=== PATIENT | male | born 1950 | race Caucasian/White ===

== ENCOUNTER 2024-03-18 04:37 | Inpatient (IN) | payer MEDICARE, MEDICAID, SELFPAY ==
[2024-03-18] VITALS (78 sets, daily range): BP systolic 79–125; BP diastolic 47–93; PULSE 51–112; RESP 10–26; TEMP 37.2–38.8; O2SAT 95–100; BMI 22.6
--- NOTE | 2024-03-18 04:46 | XR_ITS ---
Examination: AP chest single view Technique one AP portable semiupright chest single view Exam date and time: March 18, 2024 at 0521 hrs. Comparison September 20, 2023 Indications: Shortness of breath today. Findings: Large retrocardiac gastric hernia Bilateral perihilar left upper lobe pneumonia Mild prominence left ventricle Moderate vascular congestion Prominent osteopenia Impression: Bilateral perihilar left upper lobe pneumonia
--- NOTE | 2024-03-18 04:46 | EKG_ITS ---
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: : 1950 Requested By: Ronnie Beck Order Number: [id number] Reading MD: Ronnie Beck Measurements Intervals [place] Rate: 112 P: 16 MA: 181 QRS: 200 QRSD: 128 T: 40 QT: 325 QTc: 445 Interpretive Statements SINUS TACHYCARDIA MARKED RIGHT AXIS DEVIATION [QRS AXIS > 100] RIGHT BUNDLE BRANCH BLOCK [120+ ms QRS DURATION, UPRIGHT V1, 40+ ms S IN I/aVL/V4/V5/V6] ST DEVIATION AND MODERATE T-WAVE ABNORMALITY, CONSIDER ANTEROLATERAL ISCHEMIA [-0.1+ mV T WAVE IN V3-V6] Compared to ECG 09/20/2023 13:25:05 Right-axis deviation now present Right bundle-branch block now present T-wave abnormality now present Possible ischemia now present Sinus rhythm no longer present Myocardial infarct finding no longer present /store/S0/[id number]/[id number].pdf
--- NOTE | 2024-03-18 04:49 | PD.EDMALE ---
ED Male Genitalurinary RME/HPI General Chief complaint: Urogenital-Male Stated complaint: SOB/HEMATURIA Time Seen by Provider: 03/18/24 05:09 Source: patient and other (SNF records reviewed) Arrival date/time: 03/18/24 04:37 Mode of arrival: EMS Limitations: no limitations RME / HPI RME / HPI Narrative: Dr. Medeiros?s Main ED Evaluation: 73-year-old male from [facility] with h/o malnutrition, paraplegia, rAKA, depression, anxiety, pressure ulcer LT lower back stage III, pressure ulcer LT buttock stage III, UTI, charcot's joint unspecified to ankle/foot, peripheral vascular disease, hx of COVID-19, osteoarthritis, pressure ulcer of sacral region, stage III, brought in by ambulance who presents to the emergency department for shortness of breath. Per assisted, they reported patient's oxygen saturations were in the 70s on 4L therefore EMS was activated. Patient was also hypotensive. Patient states he is not normally on oxygen or short of breath, but tonight he had difficulty breathing. He also reports cough. Per EMS, on scene, patient was satting 93% on 5L. intermediate staff also reported hematuria after gordon cath placement yesterday. 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 Patient reports is on hospice for pain management secondary to severe neck and back pain. Per facility POLST, patient is full code. Related Data Home Medications ?Medication ?Instructions ?Recorded ?Confirmed alprazolam 1 mg tablet (Xanax) 1 mg PO Q6H 06/27/23 03/19/24 amino acids-protein hydrolysate 15 1 ea PO BID 06/27/23 03/19/24 gram-100 kcal/30 mL oral liquid (Pro-Stat Sugar Free) ascorbic acid (vitamin C) 500 mg 500 mg PO BID 06/27/23 03/19/24 tablet (Vitamin C) fluoxetine 10 mg tablet 10 mg PO QDAY 06/27/23 03/19/24 folic acid 1 mg tablet 1 mg PO BID 06/27/23 03/19/24 pantoprazole 40 mg tablet,delayed 40 mg PO BID 06/27/23 03/19/24 release (Protonix) polyethylene glycol 3350 17 gram 17 g PO HS 06/27/23 03/19/24 oral powder packet (Miralax) senna-docusate sodium capsule 1 cap PO BID PRN Constipation 06/27/23 03/19/24 baclofen 10 mg tablet 10 mg PO Q6H PRN Muscle Spasm 09/21/23 03/19/24 hydromorphone 4 mg tablet 8 mg PO Q4H PRN Pain, Severe 09/21/23 03/19/24 ibuprofen 200 mg tablet 600 mg PO Q6H PRN Pain, Moderate 09/21/23 03/19/24 ondansetron HCl 4 mg tablet 4 mg PO Q6H PRN nausea AND 09/21/23 03/19/24 VOMITTING oxymetazoline 0.05 % nasal mist 2 spray intranasal Q12H PRN NASAL 09/21/23 03/19/24 CONGESTION Previous Rx's ?Medication ?Instructions ?Recorded fluconazole 200 mg tablet 400 mg (2 x 200 mg) PO QDAY 1 09/23/23 month #60 tabs sulfamethoxazole 400 1 tab PO QDAY #7 tabs 09/23/23 mg-trimethoprim 80 mg tablet (Bactrim) Allergies Allergy/AdvReac Type Severity Reaction Status Date / Time No Known Allergies Allergy Verified 06/26/23 16:49 Review of Systems Review of Systems Systems Reviewed: All systems reviewed, normal except as documented Past Medical History Past Medical History NEUROLOGIC: Positive Neurological Disorders CARDIAC: Positive Cardiac Disorders, Atrial Fibrillation, Peripheral Vascular Disease and Hypotension; Negative Congestive Heart Failure RESPIRATORY: Positive Pneumonia; Negative Chronic Obstructive Pulmonary Disease (COPD) or Asthma GENITOURINARY: Positive Neurogenic Bladder; Negative Renal Disease MUSCULOSKELETAL: Positive Musculoskeletal Disorders and Arthritis ENDOCRINE: Negative Diabetes Mellitus Type 1 or Diabetes Mellitus Type 2 HEMATOLOGIC: Positive Blood Disorders and Anemia; Negative Sickle Cell Disease PSYCHO/SOCIAL: Positive Depression and Anxiety OTHER HISTORY: Positive Hospitalization, Blood Transfusions and MRSA; Negative Blood Transfusion Reaction, Anesthesia Reactions or Cancer Surgical History SURGICAL: Positive Amputation (RIGHT AKA) Social History SMOKING STATUS: Unknown if ever smoked ED Exam Narrative Physical exam: GENERAL APPEARANCE: alert and oriented x 4, well-developed, well-nourished, no acute distress VITALS: All vitals were reviewed and the pulse ox is 97% on 4 L/min, which is normal according to my interpretation. HEENT: Normocephalic, atraumatic; pupils equal, round, reactive to light; EOMI; mucous membranes pink, moist; oropharynx clear NECK: Supple LUNGS: CTABL; no wheezes, no rales, no rhonchi HEART: Regular rate, regular rhythm; normal S1, S2; no murmurs ABDOMEN: non distended; normal BS; soft, no tenderness, no guarding, no rebound; no masses, no organomegaly, no hernia BACK: no CVA tenderness EXTREMITIES: atraumatic; no edema; rAKA NEUROLOGIC: awake; alert and oriented x4; cranial nerves II-XII grossly intact; no focal sensory or motor deficits PSYCHIATRIC: appropriate mood and affect SKIN: warm, dry, normal color; no rashes General Limitations: Present no limitations Course Quality Measures none Orders Category Date Time Status Bedside COVID-19 Antigen Test NOW Care 03/18/24 05:34 Active Bedside Influenza A&B Antigen Test NOW Care 03/18/24 05:[address] Screening NOW Care 03/18/24 06:27 Active Physical Therapy Aide STAT Care 03/18/24 05:00 Active Continuous Bladder Irrigation QSHIFT Care 03/18/24 05:19 Active Continuous Pulse Oximetry STAT Care 03/18/24 05:00 Completed EKG (ED ONLY) *Do not use* NOW Care 03/18/24 04:46 Completed EKG (ED ONLY) *Do not use* NOW Care 03/18/24 05:15 Completed EKG (ED ONLY) *Do not use* NOW Care 03/18/24 06:27 Completed Insert IV NOW Care 03/18/24 05:00 Active NPO STAT Care 03/18/24 05:00 Active Strict Intake and Output Routine Care 03/18/24 05:00 Ordered Consult to Urology Stat Cons 03/18/24 09:[address] chest abdomen pelvis w Stat Exams 03/18/24 06:26 Completed EKG (ED Only) Stat Exams 03/18/24 04:46 Draft EKG (ED Only) Stat Exams 03/18/24 05:15 Draft EKG (ED Only) Stat Exams 03/18/24 06:26 Ordered XR chest 1V portable Stat Exams 03/18/24 04:46 Completed Antibody Identification Stat Lab 03/18/24 04:05 Results B-Type Natriuretic Peptide Stat Lab 03/18/24 05:15 Completed BMP [Basic Metabolic Panel] Stat Lab 03/18/24 09:43 Completed Blood Culture (Lab) Stat Lab 03/18/24 05:10 Received CBC Stat Lab 03/18/24 05:15 Completed CBC Stat Lab 03/18/24 09:43 Completed Comprehensive Metabolic Panel Stat Lab 03/18/24 04:05 Completed LDH (Lactate Dehydrogenase) Stat Lab 03/18/24 04:05 Completed Lactate (Lactic Acid) Stat Lab 03/18/24 05:15 Completed Lactic Acid, 3 HR Stat Lab 03/18/24 09:43 Completed Lipase Stat Lab 03/18/24 04:05 Completed Magnesium Stat Lab 03/18/24 04:05 Completed Partial Thromboplastin Time Stat Lab 03/18/24 04:05 Completed Phosphorous Stat Lab 03/18/24 04:05 Completed Procalcitonin Stat Lab 03/18/24 04:05 Completed Prothrombin Time with INR Stat Lab 03/18/24 04:05 Completed Troponin I Stat Lab 03/18/24 04:05 Completed Type and Screen Stat Lab 03/18/24 04:05 Results UA, C/S IF [Urinalysis, C/S if Indicated] Stat Lab 03/18/24 07:55 Completed Urine Culture Stat Lab 03/18/24 06:40 Received Urine Culture Stat Lab 03/18/24 07:55 Received VBG [Venous Blood Gas] Stat Lab 03/18/24 05:15 Completed prbc [Red Blood Cells] Stat Lab 03/18/24 04:05 Results Acetaminophen Ivpb [Ofirmev Inj] Med 03/18/24 05:17 Discontinued 1,000 mg in 100 ml IV NOW Lidocaine Jelly 2% Urojet [Xylocaine Jelly 2% Urojet] Med 03/18/24 05:15 Discontinued See Dose Instructions TOP X1 ONE Norepinephrine/D5W 8mg/250ml [Levophed in D5W 8mg/250ml Med 03/18/24 10:12 Discontinued ] 8 mg in 250 ml IV 0.05 mcg/kg/min Norepinephrine/NS 16mg/250ml [Levophed in NS 16mg/250ml Med 03/18/24 09:35 Discontinued ] 16 mg in 250 ml IV 0.05 mcg/kg/min Piper/Tazo Inj [Zosyn Inj] 4.5 gm Med 03/18/24 05:09 Discontinued Sodium Chloride 0.9% (P) [NS 0.9% mini bag] 100 ml IV NOW Sodium Chloride 0.9% 1000 ml [Ns] 1,000 ml Med 03/18/24 05:15 Discontinued IV 999 mls/hr Sodium Chloride 0.9% 1000 ml [Ns] 1,000 ml Med 03/18/24 09:18 Discontinued IV 999 mls/hr Sodium Chloride 0.9% 1000 ml [Ns] 1,000 ml Med 03/18/24 09:50 Discontinued IV 999 mls/hr Vancomycin Inj 1,000 mg Med 03/18/24 05:10 Discontinued Sodium Chloride 0.9% 250 ml [Ns] 250 ml IV X1 Oxygen Delivery NOW RT 03/18/24 05:00 Active Vital Signs Vital signs: Vital Signs Temperature 101.9 F H 03/18/24 04:58 Pulse Rate 112 H 03/18/24 04:58 Respiratory Rate 25 H 03/18/24 04:58 Blood Pressure 103/71 03/18/24 04:58 Pulse Oximetry (%) 98 03/18/24 04:58 Oxygen Delivery Method Nasal Cannula 03/18/24 04:58 Oxygen Flow Rate 6 03/18/24 04:58 Procedures -ED Procedure Comment EKG at 04:56 shows sinus tachycardia at 112, right axis deviation, no ectopy, rBBB. QRS is 128, QTc 445. Generalized ST abnormalities but no STEMI. Urogenital - Male MDM Narrative MDM Narrative:: 05:00 Sepsis alert initiated. Orders made at this time are congruent with ED Adult Sepsis Order List. Re-evaluation is to be completed. 05:35 Sepsis reassessment performed consisting of lab review, vitals, physical exam including auscultation of heart, lungs, and visual evaluation of capillary refills, mucosal membranes and extremities. 06:00 Care signed out to [facility]. Past medical, surgical, social and family history reviewed. Vitals and home medications reviewed. Results and treatment plan discussed. They will assume the care of the patient at this time and will follow the patient, pending work-up and final disposition. Scribe Attestation: Kiersten Olson, am scribing for and in the presence of Dr. Medeiros. Provider Notation: Although this document has been carefully reviewed, there may still be some phonetic and other typographical errors. These errors are purely grammatical due to imperfections in the software program and should not be construed in any way to compromise the substance of the patient's medical care during this visit. 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, peripheral vascular disease, hx of COVID-19, osteoarthritis, pressure ulcer of sacral region, stage III How is presenting disease/condition affected by chronic disease/condition?: uneffected by Evaluation data The following diagnostics were reviewed and interpreted by me:: lab results, radiology exam(s) and EKG tracing(s) Lab and/or radiology exams considered but not ordered:: None Interpretation Summary: Elevated WBC 31.9 Lactic acid 3.9 Medications / Prescriptions Medications or Prescriptions considered but not ordered:: None Medication administrations:: Medication Administration History Hydromorphone HCl (Hydromorphone Inj 2 Mg/Ml Vial) 0.5 mg IVP Q6HR PRN PRN Reason: PAIN SCALE 4-10(Mod-Sev Stop: 03/23/24 20:51 Last Admin: 03/19/24 04:18 Dose: 0.5 mg Documented By: Admin: 03/18/24 22:28 Dose: 0.5 mg Documented By: HUAN Cefepime HCl 2 gm/ Sodium (Chloride) 50 mls @ 100 mls/hr IV Q8HR [facility] Stop: 03/25/24 13:14 Last Admin: 03/18/24 21:48 Dose: 100 mls/hr Documented By: Infusion: 03/18/24 14:02 Dose: Infused Documented By: Admin: 03/18/24 13:30 Dose: 100 mls/hr Documented By: NASIM Azithromycin 500 mg/ Sodium (Chloride) 250 mls @ 250 mls/hr IV QDAY [facility] Stop: 03/26/24 08:59 Vancomycin/Sodium Chloride (Vancomycin/Ns 1 Gm Ivpb) 200 mls @ 120 mls/hr IV Q12H [facility]; Protocol Stop: 03/25/24 21:59 Last Admin: 03/18/24 21:48 Dose: 120 mls/hr Documented By: BB Fluconazole (Diflucan/Ns Ivpb) 400 mg in 200 mls @ 100 mls/hr IV QDAY NABIL Stop: 03/25/24 14:47 Last Admin: 03/18/24 16:31 Dose: 100 mls/hr Documented By: AA Norepinephrine/Dextrose (Levophed In D5w 8mg/250ml) 8 mg in 250 mls @ 5.953 mls/hr IV .Q24H PRN; Protocol PRN Reason: PER PROTOCOL Stop: 04/17/24 14:52 Last Titration: 03/18/24 18:15 Dose: 0.07 mcg/kg/min, 8.335 mls/hr Documented By: Titration: 03/18/24 18:00 Dose: 0.07 mcg/kg/min, 8.335 mls/hr Documented By: Titration: 03/18/24 17:45 Dose: 0.07 mcg/kg/min, 8.335 mls/hr Documented By: Titration: 03/18/24 17:30 Dose: 0.07 mcg/kg/min, 8.335 mls/hr Documented By: Titration: 03/18/24 17:15 Dose: 0.07 mcg/kg/min, 8.335 mls/hr Documented By: Titration: 03/18/24 17:00 Dose: 0.07 mcg/kg/min, 8.335 mls/hr Documented By: Titration: 03/18/24 16:45 Dose: 0.07 mcg/kg/min, 8.335 mls/hr Documented By: Titration: 03/18/24 16:30 Dose: 0.07 mcg/kg/min, 8.335 mls/hr Documented By: Titration: 03/18/24 16:15 Dose: 0.07 mcg/kg/min, 8.335 mls/hr Documented By: Titration: 03/18/24 16:00 Dose: 0.07 mcg/kg/min, 8.335 mls/hr Documented By: Titration: 03/18/24 15:45 Dose: 0.07 mcg/kg/min, 8.335 mls/hr Documented By: Admin: 03/18/24 15:30 Dose: 0.07 mcg/kg/min, 8.335 mls/hr Documented By: AA Pantoprazole Sodium (Pantoprazole Inj 40 Mg Vial) 40 mg IV QDAY NABIL Stop: 04/17/24 20:59 Last Admin: 03/18/24 22:01 Dose: 40 mg Documented By: BB Pharmacy Consult (Vancomycin Pharmacy To Dose 1 Each Each) 1 each IV QDAY PRN PRN Reason: PROTOCOL Stop: 04/17/24 12:59 Sennosides (Senna Tablet) 1 tab PO QDAY PRN; Protocol PRN Reason: CONSTIPATION Stop: 04/17/24 20:44 Discontinued Medications Piperacillin Sod/Tazobactam (Sod 4.5 gm/ Sodium Chloride) 100 mls @ 200 mls/hr IV NOW ONE Stop: 03/18/24 05:38 Last Infusion: 03/18/24 05:59 Dose: Infused Documented By: Admin: 03/18/24 05:21 Dose: 200 mls/hr Documented By: TC Vancomycin HCl 1,000 mg/ (Sodium Chloride) 250 mls @ 150 mls/hr IV X1 ONE Stop: 03/18/24 06:49 Last Infusion: 03/18/24 07:10 Dose: Infused Documented By: Admin: 03/18/24 05:21 Dose: 150 mls/hr Documented By: TC Sodium Chloride (Ns) 1,000 mls @ 999 mls/hr IV .Q1H1M ONE Stop: 03/18/24 06:15 Last Infusion: 03/18/24 06:29 Dose: Infused Documented By: Admin: 03/18/24 05:23 Dose: 999 mls/hr Documented By: TC Acetaminophen (Ofirmev Inj) 1,000 mg in 100 mls @ 250 mls/hr IV NOW ONE Stop: 03/18/24 05:40 Last Infusion: 03/18/24 05:59 Dose: Infused Documented By: Admin: 03/18/24 05:24 Dose: 250 mls/hr Documented By: TC Sodium Chloride (Ns) 1,000 mls @ 999 mls/hr IV .Q1H1M ONE Stop: 03/18/24 10:18 Last Infusion: 03/18/24 09:59 Dose: Infused Documented By: Admin: 03/18/24 09:21 Dose: 999 mls/hr Documented By: AA Norepinephrine Bitartrate (Levophed In Ns 16mg/250ml) 16 mg in 250 mls @ 2.977 mls/hr IV .Q24H PRN; Protocol PRN Reason: PER protocol Stop: 04/17/24 09:34 Sodium Chloride (Ns) 1,000 mls @ 999 mls/hr IV .Q1H1M ONE Stop: 03/18/24 10:50 Last Infusion: 03/18/24 11:06 Dose: Infused Documented By: Admin: 03/18/24 10:13 Dose: 999 mls/hr Documented By: AA Norepinephrine/Dextrose (Levophed In D5w 8mg/250ml) 8 mg in 250 mls @ 5.953 mls/hr IV .Q24H PRN; Protocol PRN Reason: PER PROTOCOL Stop: 04/17/24 10:11 Last Titration: 03/18/24 15:30 Dose: 0.07 mcg/kg/min, 8.335 mls/hr Documented By: Titration: 03/18/24 15:15 Dose: 0.07 mcg/kg/min, 8.335 mls/hr Documented By: Titration: 03/18/24 15:00 Dose: 0.07 mcg/kg/min, 8.335 mls/hr Documented By: Titration: 03/18/24 14:45 Dose: 0.07 mcg/kg/min, 8.335 mls/hr Documented By: Titration: 03/18/24 14:30 Dose: 0.05 mcg/kg/min, 5.953 mls/hr Documented By: Titration: 03/18/24 14:15 Dose: 0.05 mcg/kg/min, 5.953 mls/hr Documented By: Titration: 03/18/24 14:00 Dose: 0.05 mcg/kg/min, 5.953 mls/hr Documented By: Titration: 03/18/24 13:45 Dose: 0.05 mcg/kg/min, 5.953 mls/hr Documented By: Titration: 03/18/24 13:30 Dose: 0.05 mcg/kg/min, 5.953 mls/hr Documented By: Titration: 03/18/24 13:15 Dose: 0.05 mcg/kg/min, 5.953 mls/hr Documented By: Titration: 03/18/24 13:00 Dose: 0.05 mcg/kg/min, 5.953 mls/hr Documented By: Titration: 03/18/24 12:45 Dose: 0.05 mcg/kg/min, 5.953 mls/hr Documented By: Titration: 03/18/24 12:30 Dose: 0.05 mcg/kg/min, 5.953 mls/hr Documented By: Titration: 03/18/24 12:15 Dose: 0.05 mcg/kg/min, 5.953 mls/hr Documented By: Titration: 03/18/24 12:00 Dose: 0.05 mcg/kg/min, 5.953 mls/hr Documented By: Titration: 03/18/24 11:45 Dose: 0.05 mcg/kg/min, 5.953 mls/hr Documented By: Titration: 03/18/24 11:15 Dose: 0.05 mcg/kg/min, 5.953 mls/hr Documented By: Titration: 03/18/24 11:00 Dose: 0.05 mcg/kg/min, 5.953 mls/hr Documented By: Titration: 03/18/24 10:45 Dose: 0.05 mcg/kg/min, 5.953 mls/hr Documented By: Titration: 03/18/24 10:31 Dose: 0.05 mcg/kg/min, 5.953 mls/hr Documented By: Titration: 03/18/24 10:25 Dose: 0.05 mcg/kg/min, 5.953 mls/hr Documented By: Admin: 03/18/24 10:18 Dose: 0.05 mcg/kg/min, 5.953 mls/hr Documented By: AA Azithromycin 500 mg/ Sodium (Chloride) 250 mls @ 250 mls/hr IV X1 ONE; Protocol Stop: 03/18/24 14:59 Last Infusion: 03/18/24 15:43 Dose: Infused Documented By: Admin: 03/18/24 14:03 Dose: 250 mls/hr Documented By: NASIM Lidocaine HCl (Lidocaine Jelly 2% (Urojet) 10 Ml Tube) 0 ml TOP X1 ONE Stop: 03/18/24 05:16 Last Admin: 03/18/24 05:24 Dose: 10 ml Documented By: HARRY Sodium Chloride (Sodium Chloride Rt 10% 15 Ml Nebu) 5 ml INH X1 ONE Stop: 03/18/24 12:59 Last Admin: 03/18/24 18:19 Dose: Not Given Documented By: YARY Non-Admin Reason: Other, see note Comments: unable to obtain from [employer] Sodium Chloride (Sodium Chloride Rt 10% 15 Ml Nebu) 5 ml INH X1 ONE Stop: 03/18/24 18:21 Last Admin: 03/18/24 18:30 Dose: 5 ml Documented By: YARY As above, if any Consultations Consultation(s) initiated? (list below): No Diagnosis Urogenital Male Differential Diagnosis: other (PNA, CHF, pneumothorax, PE) Most likely diagnosis given after review of the tests above:: Pending work-up results Admission Indicated Admission indicated?: not indicated Explain why admission is indicated or not indicated:: Sign out pending work-up and final disposition Admission Request Was there a request for admission?: No Disposition Plan Disposition Plan: other (specify) (Sign out pending work-up and final disposition) Critical Care Time Critical Care Time Critical Care Time: Yes Total Critical Care Time (min.): 35 Attestation: The high probability of sudden, clinically significant deterioration in the patient?s condition required the highest level of my preparedness to intervene urgently. The services I provided to this patient were to treat and/or prevent clinically significant deterioration. Services included the following: chart data review, reviewing nursing notes and/or old charts, documentation time, client insights consultant collaboration regarding findings and treatment options, medication orders and management, direct patient care, vital sign assessments and ordering, interpreting and reviewing diagnostic studies and lab tests. Aggregate critical care time includes only time during which I was engaged in work directly related to the patient?s care, as described above, whether at bedside or elsewhere in the Emergency Department. It did not include time spent performing other reported procedures or the services of residents, students, nurses or physician assistants. Discharge Plan Plan Patient Disposition: Admit Acute Care w/in Hospital Problem List Clinical Impression: Pneumonia, Septic shock, Hematuria
--- NOTE | 2024-03-18 05:15 | EKG_ITS ---
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
[2024-03-18] MEDS: PIPER/TAZO INJ 4.5 GM in SODIUM CHLORIDE 0.9% (P) 100 ML IV (05:21)
[2024-03-18] MEDS: Vancomycin Inj 1,000 MG in SODIUM CHLORIDE 0.9% 250 ML 250 ML 150 MG IV (05:21)
[2024-03-18] MEDS: SODIUM CHLORIDE 0.9% 1000 ML 1,000 ML 999 ML IV ×3 (05:23→10:13)
[2024-03-18] MEDS: ACETAMINOPHEN IVPB 1,000 MG/100 ML VIAL 250 MG IV (05:24)
[2024-03-18] MEDS: LIDOCAINE JELLY 2% (Urojet) 10 ML TUBE TOP (05:24)
[2024-03-18 05:25] LABS: Base Excess, Venous 0 (-3-3); Lactate (Lactic Acid) 3.2 mMol/L (0.4-2.0); O2 Saturation, Venous 58 % (96-97); PCO2, Venous 55 mmHg (36-56); PO2, Venous 34 mmHg (15-58); pH, Venous 7.31 (7.33-7.66)
[2024-03-18 05:29] LABS: Basophils # (Auto) 0.1 Thou/mm3 (0.0-0.2); Basophils % (Auto) 0 % (0-2.5); Eosinophils # (Auto) 0.1 Thou/mm3 (0.0-0.5); Eosinophils % (Auto) 0 % (0-10); Hematocrit 36.2 % (41.0-53.0); Hemoglobin 11.6 g/dL (13.5-16.0); Immature Granulocytes % (Auto) 1 % (0-0); Immature Granulocytes Auto 0.17 Thou/mm3 (0.00-0.00); Lymphocytes # (Auto) 1.4 Thou/mm3 (1.0-4.8); Lymphocytes % (Auto) 4 % (10-50); Mean Corpuscular Hemoglobin 26.2 pg (25.0-35.0); Mean Corpuscular Volume 82 fL (80-100); Monocytes # (Auto) 1.8 Thou/mm3 (0.0-0.8); Monocytes % (Auto) 6 % (0-12); Neutrophils # (Auto) 28.4 Thou/mm3 (1.8-7.7); Neutrophils % (Auto) 89 % (37-80); Nucleated Red Blood Cell % 0 /100 WBC (0); Platelet Count 612 Thou/mm3 (140-440); RDW Standard Deviation 45.2 fL (35.1-43.9); Red Blood Count 4.42 Miln/mm3 (4.50-5.90); White Blood Count 31.9 Thou/mm3 (3.8-10.6)
[2024-03-18 05:47] LABS: INR 1.3 (0.9-1.3); Partial Thromboplastin Time 24.2 Seconds (22.0-36.0); Prothrombin Time 13.5 Seconds (9.0-12.2)
[2024-03-18 05:53] LABS: B-Type Natriuretic Peptide 22 pg/mL (0-100)
[2024-03-18 06:07] LABS: Alanine Aminotransferase 11 U/L (10-49); Albumin, Serum 4.2 gm/dL (3.4-4.8); Albumin/Globulin Ratio 1.2 (1.2-2.2); Alkaline Phosphatase 96 U/L (46-116); Anion Gap 9 (7-16); Aspartate Amino Transferase 16 U/L (0-34); BUN/Creatinine Ratio 25 Ratio (12-20); Bilirubin,Total 0.4 mg/dL (0.3-1.2); Blood Urea Nitrogen 20 mg/dL (9-23); Calcium 9.6 mg/dL (8.3-10.6); Calcium (Corrected) 9.6 mg/dL (8.5-10.1); Carbon Dioxide 27.5 mMol/L (20.0-31.0); Chloride 99 mMol/L (98-107); Creatinine (Component) 0.8 mg/dL (0.6-1.3); Globulin 3.6 gm/dL (2.3-3.5); Glucose 141 mg/dL (74-106); LDH (Lactate Dehydrogenase) 135 U/L (120-246); Lipase 25 U/L (12-53); Magnesium 1.8 mg/dL (1.6-2.6); Osmolality,Calculated 274 (275-295); Phosphorous 3.7 mg/dL (2.4-5.1); Potassium 3.7 mMol/L (3.4-5.1); Procalcitonin 0.18 ng/ml (0.0-0.49); Sodium 135 mMol/L (136-145); Total Protein 7.8 gm/dL (5.7-8.2); Troponin I < 0.002 ng/mL (0.0-0.045); eGFR > 60 See Note
--- NOTE | 2024-03-18 06:26 | XR_ITS ---
Examination: CT chest with intravenous contrast CT abdomen with intravenous contrast CT pelvis with intravenous contrast 2-D coronal and sagittal reconstructions Time of exam: March 18, 2024 0816 hours INDICATIONS: Sepsis today, shortness of breath, hematuria laboratory examination CTDI: vol (mGy) : 16.3 DLP: (mGycm): 1230 Technique: Multiple axial images of the chest, abdomen and pelvis with intravenous contrast, 3.0 mm slice thickness. Images obtained post intravenous injection Isovue 370 60 cc. 2-D sagittal and coronal reconstructions. Low dose protocols were performed. One or more of the following dose reduction techniques were used; automated exposure control, adjustment of the mA and/or KV according to patient size, use of iterative reconstruction technique. Findings: No thoracic aortic aneurysmal dilatation No pulmonary artery emboli on this non-CTA study Significant pneumonia left base with large retrocardiac gastric hernia Mild atelectasis right base No focal liver or splenic lesions Distended gallbladder No pancreatic mass Bilateral renal calculi, the largest right kidney measuring 8 mm, the largest left kidney 10 mm No hydronephrosis or ureteral calculi Aorta normal size No bowel obstruction Normal appendix Large amounts of stool in the rectum with thickening of the rectal wall Marked thickening of the urinary bladder contracted around a urinary Baker catheter 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
--- NOTE | 2024-03-18 06:48 | PD.EDADDENDU ---
Emergency Room Addendum <Torie Vargas - Last Filed: 03/18/24 09:17> Addendum Narrative: 0600: Care assumed from Dr. Medeiros, the previous shift emergency physician. Past medical, surgical, social and family history reviewed. Vitals and home medications reviewed. I will assume the care of the patient at this time, pending reassessment and final disposition. Please refer to the emergency department record for history and examination from initial visit.? EMS notes reviewed by me. Nursing notes reviewed by me. Vital signs reviewed by me. prison records reviewed by me. I reviewed PMHx and medication list from [facility] medical records reviewed by me. RADIOLOGY Ordering Physician: Dakotah Plaza MD Date of Service: 03/18/24 Procedure(s): CT chest abdomen pelvis w Accession Number(s): [id number] cc: Geeta Boston MD; Hugo Reyes MD; Dakotah Plaza MD~ Examination: CT chest with intravenous contrast CT abdomen with intravenous contrast CT pelvis with intravenous contrast 2-D coronal and sagittal reconstructions Time of exam: March 18, 2024 0816 hours INDICATIONS: Sepsis today, shortness of breath, hematuria laboratory examination CTDI: vol (mGy) : 16.3 DLP: (mGycm): 1230 Technique: Multiple axial images of the chest, abdomen and pelvis with intravenous contrast, 3.0 mm slice thickness. Images obtained post intravenous injection Isovue 370 60 cc. 2-D sagittal and coronal reconstructions. Low dose protocols were performed. One or more of the following dose reduction techniques were used; automated exposure control, adjustment of the mA and/or KV according to patient size, use of iterative reconstruction technique. Findings: No thoracic aortic aneurysmal dilatation No pulmonary artery emboli on this non-CTA study Significant pneumonia left base with large retrocardiac gastric hernia Mild atelectasis right base No focal liver or splenic lesions Distended gallbladder No pancreatic mass Bilateral renal calculi, the largest right kidney measuring 8 mm, the largest left kidney 10 mm No hydronephrosis or ureteral calculi Aorta normal size No bowel obstruction Normal appendix Large amounts of stool in the rectum with thickening of the rectal wall Marked thickening of the urinary bladder contracted around a urinary Baker catheter 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 Dictated By: Hugo Reyes MD Signed By: <Electronically signed by Hugo Reyes MD in OV> 03/18/24 0904 <Dakotah Plaza MD - Last Filed: 03/18/24 09:56> Addendum Narrative: 0600: Care assumed from Dr. Medeiros, the previous shift emergency physician. Past medical, surgical, social and family history reviewed. Vitals and home medications reviewed. I will assume the care of the patient at this time, pending reassessment and final disposition. Please refer to the emergency department record for history and examination from initial visit.? EMS notes reviewed by me. Nursing notes reviewed by me. Vital signs reviewed by me. prison records reviewed by me. I reviewed PMHx and medication list from [facility] medical records reviewed by me. RADIOLOGY Ordering Physician: Dakotah Plaza MD Date of Service: 03/18/24 Procedure(s): CT chest abdomen pelvis w Accession Number(s): [id number] cc: Geeta Boston MD; Hugo Reyes MD; Dakotah Plaza MD~ Examination: CT chest with intravenous contrast CT abdomen with intravenous contrast CT pelvis with intravenous contrast 2-D coronal and sagittal reconstructions Time of exam: March 18, 2024 0816 hours INDICATIONS: Sepsis today, shortness of breath, hematuria laboratory examination CTDI: vol (mGy) : 16.3 DLP: (mGycm): 1230 Technique: Multiple axial images of the chest, abdomen and pelvis with intravenous contrast, 3.0 mm slice thickness. Images obtained post intravenous injection Isovue 370 60 cc. 2-D sagittal and coronal reconstructions. Low dose protocols were performed. One or more of the following dose reduction techniques were used; automated exposure control, adjustment of the mA and/or KV according to patient size, use of iterative reconstruction technique. Findings: No thoracic aortic aneurysmal dilatation No pulmonary artery emboli on this non-CTA study Significant pneumonia left base with large retrocardiac gastric hernia Mild atelectasis right base No focal liver or splenic lesions Distended gallbladder No pancreatic mass Bilateral renal calculi, the largest right kidney measuring 8 mm, the largest left kidney 10 mm No hydronephrosis or ureteral calculi Aorta normal size No bowel obstruction Normal appendix Large amounts of stool in the rectum with thickening of the rectal wall Marked thickening of the urinary bladder contracted around a urinary Baker catheter 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 Dictated By: Hugo Reyes MD Signed By: <Electronically signed by Hugo eRyes MD in OV> 03/18/24 0904 The patient was signed out to me from Dr. Medeiros at 6:00 this morning. The patient is here for sepsis. And gross hematuria. Twelve-lead EKG at 6:53 AM and interpreted by me: Normal sinus rhythm. Heart rate of 66. Normal axis. No ST elevation or depression. No PVC. No STEMI. Evidence of right bundle branch block. Which is new with comparison to the old EKG in September 2023. Repeated twelve-lead EKG at 6:58 AM and interpreted by me: Normal sinus rhythm. Heart rate of 68. Normal axis. No ST elevation or depression. No PVC. No STEMI. Regular rate and rhythm. Right bundle branch block pattern. WBC count is 32,000. Influenza and COVID-19 are negative. CMP is negative. Lactic acid is 3.2 which is consistent with sepsis. Or dehydration. Procalcitonin is negative. Troponin is negative. Chest x-ray reviewed by and interpreted by me: Large hiatal hernia. Infiltrate in the left base. Heart is moderate cardiomegaly. Mediastinum normal. And there is a pacemaker. CT of the chest abdomen and pelvic resulted please see above finding. Read by Dr. Hugo Reyes. So in the emergency department the patient was seen and treated by Dr. Medeiros with IV fluid, IV antibiotics, he changed Baker to a three-way irrigation Baker through which the patient received bladder irrigation continuously. According to nursing staff, the patient had a lot of blood and clots. At 9 AM, blood pressure was 79/51. Pulse of 63. Respiration was 16. O2 saturation at 90% on 2 L. And we are giving him some IV fluid. We are putting patient on the Levophed drip. I am ordering for a repeated CBC and BMP and lactic acid. In the meantime I am typing and crossing with 2 units of packed red blood cells. He might need blood transfusion based on the clinical response to IV fluid versus repeated hemoglobin hematocrit versus continuing gross hematuria. 9:25 AM, I spoke to and discussed with , urologist. Even though he is not on-call for the ER. He is kind enough to agree to consultation. And I am texting him the patient facesheet and copy of the CT report. 9:40 AM, I spoke to and discussed with Dr. Manning, ICU blending operator on-call. He agreed to assess the patient for admission to ICU. Diagnosis: -Sepsis -Gross hematuria -Pneumonia -Right buttock decubitus ulcer, stage IV -Nonobstructing kidney stones -Constipation Condition: Stabilized to be admitted
[2024-03-18 08:11] LABS: Collection Type, Urine Catheter; Squamous Epithelial Cell,Urine 0 /hpf (0-5)
[2024-03-18 08:22] LABS: Reflex Lactate? Y
[2024-03-18 08:57] LABS: Bilirubin,Urine Negative (Negative); Blood,Urine 3+ (Negative); Glucose, Urine Negative (Negative); Ketones,Urine Negative (Negative); Leukocyte Esterase,Urine Positive (Negative); Nitrite,Urine Negative (Negative); Protein,Urine 2+ (Neg - Trace); RBC,Urine 9238 /hpf (0-3); Specific Gravity,Urine 1.017 (1.001-1.035); Urobilinogen,Urine Negative mg/dL (0.0-1.0); WBC,Urine 302 /hpf (0-5)
[2024-03-18 09:01] LABS: Clarity,Urine Bloody (Clear/Hazy); Color,Urine Drk Red (Lt Yel-Yel); Culture Indicated,Urine Yes
[2024-03-18 10:09] LABS: Lactic Acid, 3 HR 1.8 mMol/L (0.4-2.0)
[2024-03-18] MEDS: Norepinephrine/D5W 8mg/250ml 8 MG/250 ML BAG 5.953 MG IV (10:18)
[2024-03-18 10:27] LABS: Basophils % (Auto) 0 % (0-2.5); Eosinophils % (Auto) 0 % (0-10); Hematocrit 26.4 % (41.0-53.0); Immature Granulocytes % (Auto) 0 % (0-0); Immature Granulocytes Auto 0.07 Thou/mm3 (0.00-0.00); Lymphocytes # (Auto) 1.1 Thou/mm3 (1.0-4.8); Lymphocytes % (Auto) 6 % (10-50); Mean Corpuscular HGB Conc 31.4 g/dl (31.0-37.0); Mean Corpuscular Hemoglobin 25.9 pg (25.0-35.0); Mean Corpuscular Volume 83 fL (80-100); Monocytes # (Auto) 0.9 Thou/mm3 (0.0-0.8); Monocytes % (Auto) 5 % (0-12); Neutrophils # (Auto) 15.3 Thou/mm3 (1.8-7.7); Neutrophils % (Auto) 88 % (37-80); Nucleated Red Blood Cell % 0 /100 WBC (0); Platelet Count 387 Thou/mm3 (140-440); RDW Standard Deviation 45.5 fL (35.1-43.9); White Blood Count 17.5 Thou/mm3 (3.8-10.6)
[2024-03-18 10:34] LABS: Anion Gap 7 (7-16); BUN/Creatinine Ratio 27 Ratio (12-20); Blood Urea Nitrogen 16 mg/dL (9-23); Calcium 7.9 mg/dL (8.3-10.6); Carbon Dioxide 24.2 mMol/L (20.0-31.0); Chloride 106 mMol/L (98-107); Creatinine (Component) 0.6 mg/dL (0.6-1.3); Glucose 116 mg/dL (74-106); Osmolality,Calculated 276 (275-295); Potassium 4.1 mMol/L (3.4-5.1); Sodium 137 mMol/L (136-145); eGFR > 60 See Note
[2024-03-18 10:35] LABS: Hemoglobin 8.3 g/dL (13.5-16.0)
[2024-03-18] MEDS: CEFEPIME INJ 2 GM in SODIUM CHLORIDE 0.9% (P) 50 ML IV ×2 (13:30→21:48)
--- NOTE | 2024-03-18 13:43 | PC.NURSE ---
Rn spoke with Yudith at [facility] updated with plan of admission.
[2024-03-18] MEDS: AZITHROMYCIN INJ 500 MG in SODIUM CHLORIDE 0.9% 250 ML 250 ML 250 MG IV (14:03)
[2024-03-18] MEDS: Norepinephrine/D5W 8mg/250ml 8 MG/250 ML BAG 8.335 MG IV (15:30)
--- NOTE | 2024-03-18 16:03 | PC.CC ---
Pt Yevgeniy Hudson is a 73 yr old male admitted to hospitalist services for septic shock. ASW met with pt at bedside to complete initial assessment. At time of encounter pt is noted to be alert and oriented to person, place and situation. Pt is difficult to understand due to volume of voice. ASW attained verbal consent to make contact with pts sister Annamarie Swenson [phone]. Pts sister is identified as surrogate DM by pt. [id number] spoke with pts sister Annamarie. 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 Pt transitioned from SNF in [facility] 1 yr ago and has been at [facility] since. Per Annamarie at baseline pt is bed bed non ambulatory. Pt is max assist with his ADLs. PT is not diabetic and is not on dialysis. Pt is followed by Dr. Boston. At time of D/c pt will return back to [facility]. Pt will need transport due to hx of paraplegia bed bound at baseline.
[2024-03-18] MEDS: FLUCONAZOLE/NS 400 MG IVPB 400 MG/200 ML BAG 100 MG IV (16:31)
[2024-03-18] MEDS: SODIUM CHLORIDE RT 10% 15 ML NEBU 5 ML INH (18:30)
--- NOTE | 2024-03-18 18:31 | PC.NURSE ---
Report given to Ashley Ruiz, patient transferring to room 254.
--- NOTE | 2024-03-18 19:14 | PC.NURSE ---
Pt arrived to ICU at 1849. Pt arrived with VS within normal limits on 2L NC. Report given to VIRGIE Sommers.
--- NOTE | 2024-03-18 19:43 | PD.RESHP ---
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 Patient is alert and oriented x 3 however poor historian and most history was obtained from chart review. He denies any fever, chills, abdominal pain. Endorses severe back pain and continuously requesting pain medications. In ED, vitals hypotension systolic ranging from 80?90/50?60 diastolic, tachycardic 112, tachypneic 25, fever 101.9, saturating 98% via 6 L nasal cannula. Labs significant for leukocytosis 31.9, hemoglobin 11.6, platelets 612, sodium 135, potassium 3.7, bicarb 27, creatinine 0.8, glucose 141, lactic acid 3.2, UA positive leukocyte esterase, hematuria, urine WBC 302. CT abdomen pelvis showed significant pneumonia left lung base, bilateral renal calculi, large amounts of stool in rectum. Patient did not respond to 3 L fluid bolus and was started on Levophed for septic shock and vancomycin, cefepime, azithromycin for healthcare associated pneumonia and treatment of UTI. Due to previous history of valley fever, fluconazole started [address] Mendoza was consulted and patient admitted for further management of septic shock secondary to UTI and pneumonia. PMH: As noted above PSH: Spinal laminectomy in 2022 Social:Marijuana, cocaine in his early 20s. Smoked 2-3 cigarettes, quit in 1989. Lives in nursing facility. Review of Systems Review of Systems Systems Reviewed: All systems reviewed, normal except as documented Exam Vital Signs Temp Pulse Resp BP Pulse Ox O2 Del Method O2 Flow Rate 99.9 F 66 19 120/72 100 Nasal Cannula 4 03/18/24 18:23 03/18/24 18:31 03/18/24 18:31 03/18/24 18:23 03/18/24 18:31 03/18/24 18:23 03/18/24 18:31 Narrative Exam General: Alert and oriented x3. Mild distress, irritable HEENT: Atraumatic, normocephalic. No JVD noted. Mucosa dry. Cardiovascular: Normal S1 and S2. Regular rate and rhythm. Respiratory: Wheezing auscultated on expiration B/L Abdomen: Soft, nontender, not distended, normal bowel sounds. Musculoskeletal:Paraplegic w/ right aka Neuro: Alert and oriented x3. No focal neuro deficits. Results: Labs 03/21/24 05:15 03/21/24 05:15 Labs: Short CBC 03/18/24 03/18/24 Range/Units 05:15 09:43 WBC 31.9 H 17.5 H D (3.8-10.6) Thou/mm3 Hgb 11.6 L 8.3 L D (13.5-16.0) g/dL Hct 36.2 L 26.4 L (41.0-53.0) % Plt Count 612 H 387 D (140-440) Thou/mm3 BMP 03/18/24 03/18/24 04:05 09:43 Sodium 135 L 137 Potassium 3.7 4.1 Chloride 99 106 Carbon Dioxide 27.5 24.2 BUN 20 16 Creatinine 0.8 0.6 Glucose 141 H 116 H Calcium 9.6 7.9 L D Cardiac Enzymes 03/18/24 Range/Units 04:05 Troponin I < 0.002 (0.0-0.045) ng/mL Liver Function 03/18/24 Range/Units 04:05 Total Bilirubin 0.4 (0.3-1.2) mg/dL AST 16 (0-34) U/L ALT 11 (10-49) U/L Alkaline Phosphatase 96 (46-116) U/L Albumin 4.2 (3.4-4.8) gm/dL Urine 03/18/24 03/18/24 Range/Units 06:40 07:55 Urine Color Cancelled Drk Red A Urine Clarity Cancelled Bloody A Urine pH Cancelled 8.0 H Ur Specific [place] Cancelled 1.017 Urine Protein Cancelled 2+ A Urine Glucose (UA) Cancelled Negative ABG Interpretation ABG results: 03/18/24 05:15 VBG pH 7.31 L VBG pCO2 55 VBG pO2 34 VBG Base Excess 0 Quality Measures Quality Measures none Advance care planning discussed with:: patient Medications Home Medications and Allergies Home Medications ?Medication ?Instructions ?Recorded ?Confirmed ?Type alprazolam 1 mg tablet (Xanax) 1 mg PO Q6H 06/27/23 03/19/24 History amino acids-protein hydrolysate 15 1 ea PO BID 06/27/23 03/19/24 History gram-100 kcal/30 mL oral liquid (Pro-Stat Sugar Free) ascorbic acid (vitamin C) 500 mg 500 mg PO BID 06/27/23 03/19/24 History tablet (Vitamin C) fluoxetine 10 mg tablet 10 mg PO QDAY 06/27/23 03/19/24 History folic acid 1 mg tablet 1 mg PO BID 06/27/23 03/19/24 History pantoprazole 40 mg tablet,delayed 40 mg PO BID 06/27/23 03/19/24 History release (Protonix) polyethylene glycol 3350 17 gram 17 g PO HS 06/27/23 03/19/24 History oral powder packet (Miralax) senna-docusate sodium capsule 1 cap PO BID PRN Constipation 06/27/23 03/19/24 History baclofen 10 mg tablet 10 mg PO Q6H PRN Muscle Spasm 09/21/23 03/19/24 History hydromorphone 4 mg tablet 8 mg PO Q4H PRN Pain, Severe 09/21/23 03/19/24 History ibuprofen 200 mg tablet 600 mg PO Q6H PRN Pain, Moderate 09/21/23 03/19/24 History ondansetron HCl 4 mg tablet 4 mg PO Q6H PRN nausea AND 09/21/23 03/19/24 History VOMITTING oxymetazoline 0.05 % nasal mist 2 spray intranasal Q12H PRN NASAL 09/21/23 03/19/24 History CONGESTION Allergies Allergy/AdvReac Type Severity Reaction Status Date / Time No Known Allergies Allergy Verified 06/26/23 16:49 Visit Medications Cefepime HCl 2 gm/ Sodium (Chloride) 50 mls @ 100 mls/hr IV Q8HR NABIL Stop: 03/25/24 13:14 Last Infusion: 03/18/24 14:02 Dose: Infused Azithromycin 500 mg/ Sodium (Chloride) 250 mls @ 250 mls/hr IV QDAY NABIL Stop: 03/26/24 08:59 Vancomycin/Sodium Chloride (Vancomycin/Ns 1 Gm Ivpb) 200 mls @ 120 mls/hr IV Q12H NABIL; Protocol Stop: 03/25/24 21:59 Fluconazole (Diflucan/Ns Ivpb) 400 mg in 200 mls @ 100 mls/hr IV QDAY NABIL Stop: 03/25/24 14:47 Last Admin: 03/18/24 16:31 Dose: 100 mls/hr Norepinephrine/Dextrose (Levophed In D5w 8mg/250ml) 8 mg in 250 mls @ 5.953 mls/hr IV .Q24H PRN; Protocol PRN Reason: PER PROTOCOL Stop: 04/17/24 14:52 Last Titration: 03/18/24 18:15 Dose: 0.07 mcg/kg/min, 8.335 mls/hr Pharmacy Consult (Vancomycin Pharmacy To Dose 1 Each Each) 1 each IV QDAY PRN PRN Reason: PROTOCOL Stop: 04/17/24 12:59 Discontinued Medications Piperacillin Sod/Tazobactam (Sod 4.5 gm/ Sodium Chloride) 100 mls @ 200 mls/hr IV NOW ONE Stop: 03/18/24 05:38 Last Infusion: 03/18/24 05:59 Dose: Infused Vancomycin HCl 1,000 mg/ (Sodium Chloride) 250 mls @ 150 mls/hr IV X1 ONE Stop: 03/18/24 06:49 Last Infusion: 03/18/24 07:10 Dose: Infused Sodium Chloride (Ns) 1,000 mls @ 999 mls/hr IV .Q1H1M ONE Stop: 03/18/24 06:15 Last Infusion: 03/18/24 06:29 Dose: Infused Acetaminophen (Ofirmev Inj) 1,000 mg in 100 mls @ 250 mls/hr IV NOW ONE Stop: 03/18/24 05:40 Last Infusion: 03/18/24 05:59 Dose: Infused Sodium Chloride (Ns) 1,000 mls @ 999 mls/hr IV .Q1H1M ONE Stop: 03/18/24 10:18 Last Infusion: 03/18/24 09:59 Dose: Infused Norepinephrine Bitartrate (Levophed In Ns 16mg/250ml) 16 mg in 250 mls @ 2.977 mls/hr IV .Q24H PRN; Protocol PRN Reason: PER protocol Stop: 04/17/24 09:34 Sodium Chloride (Ns) 1,000 mls @ 999 mls/hr IV .Q1H1M ONE Stop: 03/18/24 10:50 Last Infusion: 03/18/24 11:06 Dose: Infused Norepinephrine/Dextrose (Levophed In D5w 8mg/250ml) 8 mg in 250 mls @ 5.953 mls/hr IV .Q24H PRN; Protocol PRN Reason: PER PROTOCOL Stop: 04/17/24 10:11 Last Titration: 03/18/24 15:30 Dose: 0.07 mcg/kg/min, 8.335 mls/hr Azithromycin 500 mg/ Sodium (Chloride) 250 mls @ 250 mls/hr IV X1 ONE; Protocol Stop: 03/18/24 14:59 Last Infusion: 03/18/24 15:43 Dose: Infused Lidocaine HCl (Lidocaine Jelly 2% (Urojet) 10 Ml Tube) 0 ml TOP X1 ONE Stop: 03/18/24 05:16 Last Admin: 03/18/24 05:24 Dose: 10 ml Sodium Chloride (Sodium Chloride Rt 10% 15 Ml Nebu) 5 ml INH X1 ONE Stop: 03/18/24 12:59 Last Admin: 03/18/24 18:19 Dose: Not Given Sodium Chloride (Sodium Chloride Rt 10% 15 Ml Nebu) 5 ml INH X1 ONE Stop: 03/18/24 18:21 Last Admin: 03/18/24 18:30 Dose: 5 ml Assessment & Plan Plan Yevgeniy Hudson is 73 yr male with PMH of anxiety, chronic back pain on baclofen and hydromorphone, osteroarthritis,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 Patient is alert and oriented x 3 however poor historian and most history was obtained from chart review. Patient admitted for septic shock secondary to UTI versus pneumonia and management of hematuria. Neuro: #Hx depression -Fluoxetine 10 mg daily CVS: #Septic shock 2/2 UTI vs healthcare associated pneumonia Patient currently resides at nursing facility and has previous history of valley fever. In the ED, patient was tachycardic, elevated WBC, tachypneic and fever. After receiving 3 L bolus saline with no improvement of MAP, patient was started on Levophed per sepsis protocol. UA positive for infection. -Patient on vancomycin -Cefepime 2 g every 8 hour ? Azithromycin 500 mg daily ?Fluconazole 400 mg daily ? Blood culture pending ? Urine culture pending ? Cocci serology pending ? RSV pending ? COVID antigen test pending Pulm: #Healthcare associated pneumonia Patient has history of multiple admissions due to pneumonia and has previous history of valley fever. He denies any chest pain however on admission patient presented with fever, WBC elevated, tachycardic, tachypneic. X-ray on 03/18 revealed left lung pneumonia. -Antibiotic therapy as noted above -Continue oxygen supplement Renal: #Hx chronic indwelling Baker catheter #Hematuria #Renal calculi Patient has presented with hematuria since past 2-3 days. No evidence of GLENROY. Dr. Mendoza urology has been consulted for follow-up with patient recommendations are pending. UA positive for hematuria. Hematuria may be possible due to renal stones, Baker catheter trauma, bladder cancer,UTI. -Dr Mendoza recommendations pending ? Follow-up urine culture ?Possible cystoscopy for bladder visualization. GI: #Constipation Is unable to recall last bowel movement. CT abdomen pelvis revealed large amount of stool in the rectum. -SEnna Endo: No active problems Heme/Onc: #Hematuria -refer above #Hx thrombocytosis Most likely reactive thrombocytosis in setting of infection, acute blood loss, malignancy MSK: # History of chronic back pain # History right above-knee amputation Medical records from nursing facility indicate that patient takes baclofen 10 mg every 6 hours as needed, hydromorphone 8 mg every 4 hours scheduled. -IV Dilaudid 0.5 mg every 4 hours ID: #Septic shock 2/2 pneumonia versus UTI -See above note under CVS for management Skin: #Hx pressure ulcers #Ulcer left calf, active Active ulcer is wrapped with no evidence of bleeding or seeping. -wound care Health maintenance: Dispo: ICU for tx of septic shock 2/2 UTI and pneumonia, hematuria Diet: REgular DVT prophylaxis: SCDs CODE STATUS: Full code The patient's management plan was discussed with my attending physician Dr. Manning and senior Dr. Eugene. Ellen Ledezma, PGY-1 Attending Provider Attestation/Addendum Patient seen and examined with above resident, Ellen Ledezma MD. I agree with the findings, assessment, and plan of care as documented except for any differences below. Patient with septic shock with possible 2 etiologies including from the urinary tract versus pneumonia though the patient has history of pulmonary coccidioidomycosis. Patient notably with hematuria with planned evaluation by urology on this admission. Patient with sepsis and septic shock secondary to underlying infection for which she has been started on broad-spectrum antibiotics given he lives in a SNF and remains at risk for healthcare associated infections. Patient also noted to require continuation of fluconazole for his history of coccidioidomycosis. We also maintained him on atypical coverage with azithromycin. Will need to monitor EKG with QTc prolongation associated with multiple of his medications that he is now receiving. Total critical care time: I personally spent 25 minutes for review of physiologic parameters, directing plan of care throughout the day, coordination of care with other specialists, and counseling patient at bedside. This is exclusive of time spent teaching housestaff or performing any separate billable procedures. Patient continues to require critical care services for septic shock secondary to pneumonia versus UTI. Patient remains at risk for further morbidity and mortality warranting ongoing care and monitoring only available in the intensive care unit.
[2024-03-18] MEDS: VANCOMYCIN/NS 1 GM IVPB 200 ML IV (21:48)
[2024-03-18] MEDS: PANTOPRAZOLE INJ 40 MG VIAL IV (22:01)
[2024-03-18] MEDS: HYDROmorphone INJ 2 MG/ML VIAL 0.5 MG IVP (22:28)
[2024-03-19] VITALS (42 sets, daily range): BP systolic 80–138; BP diastolic 48–82; PULSE 49–91; RESP 7–22; TEMP 36.1–37.2; O2SAT 89–100; BMI 21.2
[2024-03-19] MEDS: HYDROmorphone INJ 2 MG/ML VIAL 0.5 MG IVP ×3 (04:18→21:20)
[2024-03-19 06:17] LABS: Basophils # (Auto) 0.1 Thou/mm3 (0.0-0.2); Basophils % (Auto) 0 % (0-2.5); Eosinophils % (Auto) 0 % (0-10); Hematocrit 29.2 % (41.0-53.0); Hemoglobin 9.3 g/dL (13.5-16.0); Immature Granulocytes % (Auto) 1 % (0-0); Immature Granulocytes Auto 0.12 Thou/mm3 (0.00-0.00); Lymphocytes # (Auto) 1.3 Thou/mm3 (1.0-4.8); Lymphocytes % (Auto) 7 % (10-50); Mean Corpuscular HGB Conc 31.8 g/dl (31.0-37.0); Mean Corpuscular Hemoglobin 26.7 pg (25.0-35.0); Mean Corpuscular Volume 84 fL (80-100); Monocytes # (Auto) 1.1 Thou/mm3 (0.0-0.8); Monocytes % (Auto) 6 % (0-12); Neutrophils # (Auto) 15.4 Thou/mm3 (1.8-7.7); Neutrophils % (Auto) 86 % (37-80); Nucleated Red Blood Cell % 0 /100 WBC (0); Platelet Count 361 Thou/mm3 (140-440); RDW Standard Deviation 47.6 fL (35.1-43.9); Red Blood Count 3.48 Miln/mm3 (4.50-5.90)
[2024-03-19 06:18] LABS: Lactate (Lactic Acid) 1.6 mMol/L (0.4-2.0)
[2024-03-19] MEDS: CEFEPIME INJ 2 GM in SODIUM CHLORIDE 0.9% (P) 50 ML IV ×3 (06:31→21:08)
--- NOTE | 2024-03-19 06:41 | EKG_ITS ---
[facility] Test Date: 2024-03-19 Pat Name: MARY BETH WRIGHT [facility] Supervisor Spinning: ENOCH : 1950 Requested By: Leandro Grider Order Number: [id number] Reading MD: Leandro Grider Measurements Intervals [place] Rate: 53 P: GA: QRS: 50 QRSD: 121 T: 205 QT: 421 QTc: 397 Interpretive Statements UNCERTAIN IRREGULAR RHYTHM SEPTAL MYOCARDIAL INFARCTION , OF INDETERMINATE AGE MODERATE T-WAVE ABNORMALITY, CONSIDER ANTEROLATERAL ISCHEMIA Compared to ECG 03/18/2024 20:41:25 Myocardial infarct finding now present T-wave abnormality now present Possible ischemia now present Sinus rhythm no longer present Right bundle-branch block no longer present /store/S0/[id number]/[id number].pdf
[2024-03-19 07:30] LABS: Alanine Aminotransferase 9 U/L (10-49); Albumin, Serum 3.4 gm/dL (3.4-4.8); Albumin/Globulin Ratio 1.2 (1.2-2.2); Alkaline Phosphatase 73 U/L (46-116); Anion Gap 8 (7-16); Aspartate Amino Transferase 10 U/L (0-34); BUN/Creatinine Ratio 22 Ratio (12-20); Bilirubin,Total 0.5 mg/dL (0.3-1.2); Blood Urea Nitrogen 13 mg/dL (9-23); Calcium 8.6 mg/dL (8.3-10.6); Calcium (Corrected) 9.1 mg/dL (8.5-10.1); Chloride 108 mMol/L (98-107); Creatinine (Component) 0.6 mg/dL (0.6-1.3); Globulin 2.8 gm/dL (2.3-3.5); Glucose 106 mg/dL (74-106); Magnesium 1.9 mg/dL (1.6-2.6); Osmolality,Calculated 283 (275-295); Phosphorous 3.4 mg/dL (2.4-5.1); Potassium 3.4 mMol/L (3.4-5.1); Sodium 142 mMol/L (136-145); Total Protein 6.2 gm/dL (5.7-8.2); eGFR > 60 See Note
[2024-03-19] MEDS: PANTOPRAZOLE INJ 40 MG VIAL IV (08:25)
[2024-03-19] MEDS: AZITHROMYCIN INJ 500 MG in SODIUM CHLORIDE 0.9% 250 ML 250 ML 250 MG IV (08:27)
[2024-03-19] MEDS: FLUCONAZOLE/NS 400 MG IVPB 400 MG/200 ML BAG 100 MG IV (08:34)
[2024-03-19] MEDS: DOCUSATE SOD 100 MG CAPSULE PO (09:30)
--- NOTE | 2024-03-19 10:30 | PC.SS ---
Update: Patient from [facility] placement, [facility]. Patient on 1L oxygen, nasal cannula. P.O. feeding. Patient is not receiving pressor support.
[2024-03-19] MEDS: VANCOMYCIN/NS 1 GM IVPB 200 ML IV ×2 (10:32→22:35)
[2024-03-19 11:39] LABS: Influenza A Ag Negative; Influenza B Ag Negative; Respiratory Syncytial Virus Ag Negative (Negative)
--- NOTE | 2024-03-19 12:49 | EVENTNT_ITS ---
<Statement entered by Quoc Sargent MD - 03/31/24 13:48> I reviewed above note and agree with findings and plans. I have also personally examined the patient with medicine team and went over assessment and plan with medical team including healthcare administration intern and resident physician. Documentation for date of: 03/19/24 Event Note Event Note: Received signout 03/19/2024 73-year-old male history of chronic indwelling catheter, BPH, previous history of valley fever, chronic back pain, right [id number] amputation who came from SNF due to hematuria and low blood pressure patient was admitted to the ICU for septic shock secondary to UTI and healthcare associated pneumonia requiring pressors but was able to be weaned off and maintaining MAP>65. Hospitalist team to resume care of patient tomorrow 03/20/2024. Saroj Norris MD PGY-1
[2024-03-19 14:00] LABS: Cocci Serology, IgM Negative (Negative)
--- NOTE | 2024-03-19 15:33 | PC.SS ---
Patient downgraded from ICU on 03-19-24.
[2024-03-19 22:00] LABS: Vancomycin,Trough 14.1 mcg/mL (5.0-10.0)
--- NOTE | 2024-03-19 23:21 | ESPR_ITS ---
<Statement entered by Bora Naqvi DO - 03/20/24 06:32> Senior attestation: Patient was examined and case was reviewed with team including attending physician. Note reviewed, I agree with most of its contents and agree with the patient's care. Patient has been weaned off vasopressor support for septic shock 2/2 PNA/UTI, remains hemodynamically stable with MAP > 65 without pressor support. Will be downgraded to medical floors. Bora Naqvi DO PGY-3 Documentation for date of: 03/19/24 Subjective Subjective Interval history: Patient was seen and examined at bedside. Per nursing, patient had 2-3 bowel movements overnight. MAP improved to 70-80 with norepi. Patient was weaned off and remains hemodynamically stable. WBC uptrended 18, Hb 9.3, potassium 3.4, Cr 0.6. Flu A/B and RSV negative. Hematuria is improving since admission. Patient denies any abdominal pain/urinary discomfort. Preliminary blood cultures negative. Urine culture positive for GNR. Continue Azithromycin 500 mg daily, vancomycin, cefepime 2 g TID. Case was discussed with primary care team and patient was downgraded to floors today. Review of systems otherwise negative except what is mentioned above. Exam Vital Signs Temp Pulse Resp BP Pulse Ox O2 Del Method O2 Flow Rate 97.0 F 91 15 120/66 99 Nasal Cannula 2 03/19/24 20:39 03/19/24 20:39 03/19/24 20:39 03/19/24 20:39 03/19/24 18:44 03/19/24 16:00 03/19/24 18:44 Objective Labs 03/21/24 05:15 03/21/24 05:15 Labs: Laboratory Results - last 24 hr 03/18/24 03/18/24 03/19/24 04:05 15:00 05:00 WBC 18.0 H RBC 3.48 L Hgb 9.3 L Hct 29.2 L MCV 84 MCH 26.7 MCHC 31.8 RDW Std Deviation 47.6 H Plt Count 361 Neut % (Auto) 86 H Lymph % (Auto) 7 L Barron % (Auto) 6 Eos % (Auto) 0 Baso % (Auto) 0 Neut # (Auto) 15.4 H Lymph # (Auto) 1.3 Barron # (Auto) 1.1 H Eos # (Auto) 0.0 Baso # (Auto) 0.1 Immature Gran # (Auto) 0.12 H Absolute Nucleated RBC 0.00 Immature Gran % 1 H Nucleated RBC % 0 Sodium Potassium Chloride Carbon Dioxide Anion Gap BUN Creatinine Estim Creat Clear Calc eGFR BUN/Creatinine Ratio Glucose Calculated Osmolality Lactic Acid Calcium Corrected Calcium Phosphorus Magnesium Total Bilirubin AST ALT Alkaline Phosphatase Total Protein Albumin Globulin Albumin/Globulin Ratio Vancomycin Trough Coccidioides IgM Ab Negative Influenza A (Rapid) Influenza B (Rapid) RSV Rapid Crossmatch See Detail 03/19/24 03/19/24 03/19/24 05:26 10:25 21:20 WBC RBC Hgb Hct MCV MCH MCHC RDW Std Deviation Plt Count Neut % (Auto) Lymph % (Auto) Barron % (Auto) Eos % (Auto) Baso % (Auto) Neut # (Auto) Lymph # (Auto) Barron # (Auto) Eos # (Auto) Baso # (Auto) Immature Gran # (Auto) Absolute Nucleated RBC Immature Gran % Nucleated RBC % Sodium 142 Potassium 3.4 D Chloride 108 H Carbon Dioxide 26.0 Anion Gap 8 BUN 13 Creatinine 0.6 Estim Creat Clear Calc 100.0 eGFR > 60 BUN/Creatinine Ratio 22 H Glucose 106 Calculated Osmolality 283 Lactic Acid 1.6 Calcium 8.6 Corrected Calcium 9.1 Phosphorus 3.4 Magnesium 1.9 Total Bilirubin 0.5 AST 10 ALT 9 L Alkaline Phosphatase 73 D Total Protein 6.2 Albumin 3.4 D Globulin 2.8 Albumin/Globulin Ratio 1.2 Vancomycin Trough 14.1 H Coccidioides IgM Ab Influenza A (Rapid) Negative Influenza B (Rapid) Negative RSV Rapid Negative Crossmatch ABG Interpretation ABG results: 03/18/24 05:15 VBG pH 7.31 L VBG pCO2 55 VBG pO2 34 VBG Base Excess 0 Quality Measures Quality Measures none Advance care planning discussed with:: patient Assessment & Plan Assessment Current Active Medications: Generic Name Dose Route Start Last Admin Trade Name Freq PRN Reason Stop Dose Admin Docusate Sodium 100 mg 03/19/24 09:15 03/19/24 09:30 Docusate Sod 100 Mg Capsule PO 04/18/24 09:14 100 mg QDAY NABIL Administration Protocol Hydromorphone HCl 8 mg 03/20/24 08:00 Hydromorphone Hcl 2 Mg Tablet PO 03/25/24 07:59 Q4H PRN Pain, Severe Hydromorphone HCl 0.5 mg 03/19/24 22:15 Hydromorphone Inj 2 Mg/Ml Vial IVP 03/20/24 08:00 Q4HR PRN PAIN Cefepime HCl 2 gm/ Sodium 50 mls @ 100 mls/hr 03/18/24 13:15 03/19/24 21:08 Chloride IV 03/25/24 13:14 100 mls/hr Q8HR NABIL Administration Azithromycin 500 mg/ Sodium 250 mls @ 250 mls/hr 03/19/24 09:00 03/19/24 08:27 Chloride IV 03/26/24 08:59 250 mls/hr QDAY NABIL Administration Vancomycin/Sodium Chloride 200 mls @ 120 mls/hr 03/18/24 22:00 03/19/24 22:35 Vancomycin/Ns 1 Gm Ivpb IV 03/25/24 21:59 120 mls/hr Q12H NABIL Administration Protocol Fluconazole 400 mg in 200 mls @ 100 mls/hr 03/18/24 14:48 03/19/24 08:34 Diflucan/Ns Ivpb IV 03/25/24 14:47 100 mls/hr QDAY NABIL Administration Pantoprazole Sodium 40 mg 03/18/24 21:00 03/19/24 08:25 Pantoprazole Inj 40 Mg Vial IV 04/17/24 20:59 40 mg QDAY NABIL Administration Pharmacy Consult 1 each 03/18/24 13:00 Vancomycin Pharmacy To Dose 1 Each Each IV 04/17/24 12:59 QDAY PRN PROTOCOL Polyethylene Glycol 17 gm 03/19/24 09:30 03/19/24 09:31 Polyethylene Glycol 17 Gm Packet PO 04/18/24 09:29 Not Given QDAY NABIL Sennosides 1 tab 03/18/24 20:45 Senna Tablet PO 04/17/24 20:44 QDAY PRN CONSTIPATION Protocol Meeta Hudosn is 73 yr male with PMH of anxiety, chronic back pain on baclofen and hydromorphone, osteroarthritis,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 Patient is alert and oriented x 3 however poor historian and most history was obtained from chart review. Patient admitted for septic shock secondary to UTI versus pneumonia and management of hematuria. Neuro: #Hx depression -Fluoxetine 10 mg daily CVS: #Septic shock 2/2 GNR UTI vs healthcare associated pneumonia Patient currently resides at nursing facility and has previous history of valley fever. In the ED, patient was tachycardic, elevated WBC, tachypneic and fever. After receiving 3 L bolus saline with no improvement of MAP, patient was started on Levophed per sepsis protocol. UA positive for infection. -Patient on vancomycin -Cefepime 2 g every 8 hour ? Azithromycin 500 mg daily ?Fluconazole 400 mg daily ? Preliminary Blood culture negative ? Urine culture postive for GNR ? Cocci serology pending ? RSV negative ? COVID antigen test pending Pulm: #Healthcare associated pneumonia Patient has history of multiple admissions due to pneumonia and has previous history of valley fever. He denies any chest pain however on admission patient presented with fever, WBC elevated, tachycardic, tachypneic. X-ray on 03/18 revealed left lung pneumonia. -Antibiotic therapy as noted above -Continue oxygen supplement -sputum culture pending Renal: #Hx chronic indwelling Baker catheter #Hematuria #Renal calculi Patient has presented with hematuria since past 2-3 days. No evidence of GLENROY. Dr. Mendoza urology has been consulted for follow-up with patient recommendations are pending. UA positive for hematuria. Hematuria may be possible due to renal stones, Baker catheter trauma, bladder cancer,UTI. -Dr Mendoza recommendations pending ? Follow-up urine culture GI: #Constipation Is unable to recall last bowel movement. CT abdomen pelvis revealed large amount of stool in the rectum. -SEnna, PEG, and docusate Endo: No active problems Heme/Onc: #Hematuria -refer above #Hx thrombocytosis Most likely reactive thrombocytosis in setting of infection, acute blood loss, malignancy MSK: # History of chronic back pain # History right above-knee amputation Medical records from nursing facility indicate that patient takes baclofen 10 mg every 6 hours as needed, hydromorphone 8 mg every 4 hours scheduled. -IV Dilaudid 0.5 mg every 4 hours ID: #Septic shock 2/2 pneumonia versus GNR UTI -See above note under CVS for management Skin: #Hx pressure ulcers #Ulcer left calf, active Active ulcer is wrapped with no evidence of bleeding or seeping. -wound care Health maintenance: Dispo: ICU for tx of septic shock 2/2 GNR UTI and pneumonia, hematuria Diet: REgular DVT prophylaxis: SCDs CODE STATUS: Full code The patient's management plan was discussed with my attending physician Dr. Manning and senior Dr. Naqvi. Ellen Ledezma, PGY-1 Attending Provider Attestation/Addendum Patient seen and examined with above resident, Ellen Ledezma MD. I agree with the findings, assessment, and plan of care as documented separately differences below. Patient admitted with septic shock secondary to possible urinary tract infection with gram-negative rods versus healthcare associated pneumonia. Patient placed on broad-spectrum antibiotics with rapid improvement after adequate fluid resuscitation and short term vasopressor support. Now weaned off and doing well. Patient with hematuria treated with continuous bladder irrigation with urology to follow. Patient with bilateral renal calculi on CT scan of suspicion of active infected stone warranting immediate removal. 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 If serologies returned negative, can discontinue regimen. Total critical care time: I personally spent 40 minutes for review of physiologic parameters, directing plan of care throughout the day, coordination of care with other specialists, and counseling patient at bedside. This is exclusive of time spent teaching housestaff or performing any separate billable procedures. Patient continued to require critical care services for septic shock requiring vasopressor support secondary to complicated urinary tract infection or pneumonia. Patient remains at risk for further morbidity and mortality warranting ongoing monitoring in the intensive care unit.
[2024-03-20] VITALS (9 sets, daily range): BP systolic 103–128; BP diastolic 76–85; PULSE 59–93; RESP 16–96; TEMP 36.1–36.2; O2SAT 94–96
[2024-03-20] MEDS: HYDROmorphone INJ 2 MG/ML VIAL 0.5 MG IVP (04:35)
[2024-03-20] MEDS: CEFEPIME INJ 2 GM in SODIUM CHLORIDE 0.9% (P) 50 ML IV (05:02)
[2024-03-20 06:14] LABS: Basophils % (Auto) 0 % (0-2.5); Eosinophils # (Auto) 0.1 Thou/mm3 (0.0-0.5); Eosinophils % (Auto) 1 % (0-10); Hemoglobin 9.9 g/dL (13.5-16.0); Immature Granulocytes % (Auto) 0 % (0-0); Immature Granulocytes Auto 0.05 Thou/mm3 (0.00-0.00); Lymphocytes # (Auto) 1.5 Thou/mm3 (1.0-4.8); Lymphocytes % (Auto) 12 % (10-50); Mean Corpuscular Hemoglobin 27.3 pg (25.0-35.0); Mean Corpuscular Volume 83 fL (80-100); Monocytes # (Auto) 0.8 Thou/mm3 (0.0-0.8); Monocytes % (Auto) 7 % (0-12); Neutrophils # (Auto) 10.3 Thou/mm3 (1.8-7.7); Neutrophils % (Auto) 81 % (37-80); Nucleated Red Blood Cell % 0 /100 WBC (0); Platelet Count 431 Thou/mm3 (140-440); RDW Standard Deviation 48.7 fL (35.1-43.9); Red Blood Count 3.62 Miln/mm3 (4.50-5.90); White Blood Count 12.8 Thou/mm3 (3.8-10.6)
[2024-03-20] MEDS: ALPRazoLAM 0.25 MG TABLET 1 MG PO ×3 (06:34→18:43)
[2024-03-20 07:05] LABS: Alanine Aminotransferase 8 U/L (10-49); Albumin, Serum 3.6 gm/dL (3.4-4.8); Albumin/Globulin Ratio 1.1 (1.2-2.2); Alkaline Phosphatase 81 U/L (46-116); Anion Gap 10 (7-16); Aspartate Amino Transferase 20 U/L (0-34); BUN/Creatinine Ratio 24 Ratio (12-20); Bilirubin,Total 0.4 mg/dL (0.3-1.2); Blood Urea Nitrogen 12 mg/dL (9-23); Calcium 9.1 mg/dL (8.3-10.6); Calcium (Corrected) 9.4 mg/dL (8.5-10.1); Carbon Dioxide 25.3 mMol/L (20.0-31.0); Chloride 108 mMol/L (98-107); Creatinine (Component) 0.5 mg/dL (0.6-1.3); Estimated Creatinine Clearance 118.6 mL/min (>60); Globulin 3.2 gm/dL (2.3-3.5); Glucose 87 mg/dL (74-106); Magnesium 1.8 mg/dL (1.6-2.6); Osmolality,Calculated 283 (275-295); Phosphorous 1.8 mg/dL (2.4-5.1); Potassium 3.2 mMol/L (3.4-5.1); Sodium 143 mMol/L (136-145); Total Protein 6.8 gm/dL (5.7-8.2); eGFR > 60 See Note
[2024-03-20] MEDS: HYDROMORPHONE HCL 2 MG TABLET 8 MG PO ×4 (08:59→21:09)
[2024-03-20] MEDS: NAPH,KPH MBDB 1 PACKET (1.5 GM) PO (09:04)
[2024-03-20] MEDS: FLUCONAZOLE 100 MG TABLET 400 MG PO (09:04)
[2024-03-20] MEDS: FLUoxetine HCL 10 MG CAPSULE PO (09:04)
[2024-03-20] MEDS: PANTOPRAZOLE INJ 40 MG VIAL IV (09:08)
--- NOTE | 2024-03-20 09:32 | PC.SS ---
Follow up note: Pt is an ICU down grade. pt is on IV antibiotic.
[2024-03-20] MEDS: AZITHROMYCIN INJ 500 MG in SODIUM CHLORIDE 0.9% 250 ML 250 ML 250 MG IV (09:50)
--- NOTE | 2024-03-20 11:14 | ESPR_ITS ---
Documentation for date of: 03/20/24 Subjective Subjective Interval history: Patient seen today at the bedside found awake, alert, orientedx3. No overnight events reported. Vital signs stable at this time. Labs unremarkable at this time. Antibiotic therapy adjusted, Vancomycin dcd, fluconazole dcd and cefepime adjusted to Ceftriaxone and will continue on Azithromycin. Patient came with hematuria and has chronic gordon catheter, Urology Dr. Mendoza was consulted, appreciate recommendations. Spoke to Dr. Mendoza recommended starting Flomax, finasteride and stop continuous irrigation of Gordon's catheter and from his standpoint can be discharged. Anticipate discharge in the next 24 to 48 hours. Exam Vital Signs Temp Pulse Resp BP Pulse Ox O2 Del Method O2 Flow Rate 96.9 F 66 16 118/79 95 Nasal Cannula 2 03/20/24 08:21 03/20/24 08:30 03/20/24 08:29 03/20/24 08:21 03/20/24 08:21 03/20/24 08:21 03/20/24 08:21 Narrative Exam Physical Exam: General: Alert and oriented x3. Mild distress, irritable HEENT: Atraumatic, normocephalic. No JVD noted. Mucosa dry. Cardiovascular: Normal S1 and S2. Regular rate and rhythm. Respiratory: Wheezing auscultated on expiration B/L Abdomen: Soft, nontender, not distended, normal bowel sounds. Musculoskeletal:Paraplegic w/ right aka Neuro: Alert and oriented x3. No focal neuro deficits. Objective Labs 03/21/24 05:15 03/21/24 05:15 Labs: Laboratory Results - last 24 hr 03/18/24 03/19/24 03/19/24 15:00 10:25 21:20 WBC RBC Hgb Hct MCV MCH MCHC RDW Std Deviation Plt Count Neut % (Auto) Lymph % (Auto) Luna % (Auto) Eos % (Auto) Baso % (Auto) Neut # (Auto) Lymph # (Auto) Luna # (Auto) Eos # (Auto) Baso # (Auto) Immature Gran # (Auto) Absolute Nucleated RBC Immature Gran % Nucleated RBC % Sodium Potassium Chloride Carbon Dioxide Anion Gap BUN Creatinine Estim Creat Clear Calc eGFR BUN/Creatinine Ratio Glucose Calculated Osmolality Calcium Corrected Calcium Phosphorus Magnesium Total Bilirubin AST ALT Alkaline Phosphatase Total Protein Albumin Globulin Albumin/Globulin Ratio Vancomycin Trough 14.1 H Coccidioides IgM Ab Negative Influenza A (Rapid) Negative Influenza B (Rapid) Negative RSV Rapid Negative 03/20/24 05:00 WBC 12.8 H D RBC 3.62 L Hgb 9.9 L Hct 30.0 L MCV 83 MCH 27.3 MCHC 33.0 RDW Std Deviation 48.7 H Plt Count 431 D Neut % (Auto) 81 H Lymph % (Auto) 12 Luna % (Auto) 7 Eos % (Auto) 1 Baso % (Auto) 0 Neut # (Auto) 10.3 H Lymph # (Auto) 1.5 Luna # (Auto) 0.8 Eos # (Auto) 0.1 Baso # (Auto) 0.0 Immature Gran # (Auto) 0.05 H Absolute Nucleated RBC 0.00 Immature Gran % 0 Nucleated RBC % 0 Sodium 143 Potassium 3.2 L Chloride 108 H Carbon Dioxide 25.3 Anion Gap 10 BUN 12 Creatinine 0.5 L Estim Creat Clear Calc 118.6 eGFR > 60 BUN/Creatinine Ratio 24 H Glucose 87 Calculated Osmolality 283 Calcium 9.1 Corrected Calcium 9.4 Phosphorus 1.8 L Magnesium 1.8 Total Bilirubin 0.4 AST 20 ALT 8 L Alkaline Phosphatase 81 Total Protein 6.8 Albumin 3.6 Globulin 3.2 Albumin/Globulin Ratio 1.1 L Vancomycin Trough Coccidioides IgM Ab Influenza A (Rapid) Influenza B (Rapid) RSV Rapid ABG Interpretation ABG results: 03/18/24 05:15 VBG pH 7.31 L VBG pCO2 55 VBG pO2 34 VBG Base Excess 0 Quality Measures Quality Measures none Advance care planning discussed with:: patient Assessment & Plan Assessment Current Active Medications: Generic Name Dose Route Start Last Admin Trade Name Freq PRN Reason Stop Dose Admin Alprazolam 1 mg 03/20/24 06:30 03/20/24 06:34 Alprazolam 0.25 Mg Tablet PO 03/25/24 06:29 1 mg Q6H NABIL Administration Azithromycin 500 mg 03/21/24 09:00 Azithromycin 250 Mg Tablet PO 03/26/24 08:59 QDAY [facility] Protocol Baclofen 10 mg 03/20/24 06:18 Baclofen 10 Mg Tablet PO 04/19/24 06:17 Q6H PRN Muscle Spasm Docusate Sodium 100 mg 03/19/24 09:15 03/20/24 09:04 Docusate Sod 100 Mg Capsule PO 04/18/24 09:14 Not Given QDAY NABIL Protocol Fluoxetine HCl 10 mg 03/20/24 09:00 03/20/24 09:04 Fluoxetine Hcl 10 Mg Capsule PO 04/19/24 08:59 10 mg QDAY NABIL Administration Hydromorphone HCl 8 mg 03/20/24 08:00 03/20/24 08:59 Hydromorphone Hcl 2 Mg Tablet PO 03/25/24 07:59 8 mg Q4H PRN Administration Pain, Severe Azithromycin 500 mg/ Sodium 250 mls @ 250 mls/hr 03/19/24 09:00 03/20/24 09:50 Chloride IV 03/20/24 12:00 250 mls/hr QDAY NABIL Administration Potassium Chloride 10 meq in 100 mls @ 100 mls/hr 03/20/24 09:45 Kcl Ivpb IV 03/20/24 13:44 Q1H NABIL Ceftriaxone Sodium/Dextrose 50 mls @ 100 mls/hr 03/20/24 10:09 Rocephin/D5w 1gm Iv Premix IV 03/27/24 10:08 QDAY NABIL Pantoprazole Sodium 40 mg 03/18/24 21:00 03/20/24 09:08 Pantoprazole Inj 40 Mg Vial IV 04/17/24 20:59 40 mg QDAY NABIL Administration Polyethylene Glycol 17 gm 03/19/24 09:30 03/20/24 09:05 Polyethylene Glycol 17 Gm Packet PO 04/18/24 09:29 Not Given QDAY NABIL Sennosides 1 tab 03/18/24 20:45 Senna Tablet PO 04/17/24 20:44 QDAY PRN CONSTIPATION Protocol Plan 73 y/o M with PMHx of chronic back pain on baclofen and hydromorphone, osteroarthritis,paraplegia w/ right above the knee amputation, spinal laminectomy (2022), indwelling catheter, history of valley fever presented to ED today from SNF due to noticeable hematuria in Gordon. #Septic shock-resolved #Sepsis secondary to UTI vs #Healthcare associated pneumonia Patient currently resides at nursing facility and has previous history of valley fever. In the ED, patient was tachycardic, elevated WBC, tachypneic and fever. After receiving 3 L bolus saline with no improvement of MAP, patient was started on Levophed per sepsis protocol. UA positive for infection. Has been off pressors for >24 hours Covid negative, Flu negative, RSV negative, Cocci negative Blood culture negative in 48 hours UCx grew Providencia rettgeri - on Ceftriaxone - on Azithromycin 500 mg daily #Hx Chronic indwelling Gordon catheter #Hematuria #Renal calculi Patient has presented with hematuria since past 2-3 days. No evidence of GLENROY. Dr. Mendoza urology has been consulted for follow-up with patient recommendations are pending. UA positive for hematuria. Hematuria may be possible due to renal stones, Gordon catheter trauma, bladder cancer,UTI. UCx grew Providencia rettgeri -Started on Flomax -Started on finasteride -Dr Mendoza recommendations pending #Constipation Is unable to recall last bowel movement. CT abdomen pelvis revealed large amount of stool in the rectum. Had BM today -Senna #Hx thrombocytosis Most likely reactive thrombocytosis in setting of infection, acute blood loss, malignancy # History of chronic back pain # History right above-knee amputation Medical records from nursing facility indicate that patient takes baclofen 10 mg every 6 hours as needed, hydromorphone 8 mg every 4 hours scheduled. -IV Dilaudid 0.5 mg every 4 hours #Hx pressure ulcers #Ulcer left calf, active Active ulcer is wrapped with no evidence of bleeding or seeping. -wound care #Hx depression -Fluoxetine 10 mg daily Case discussed with my senior Dr. Amezquita PGY-[address] Jay Norris MD PGY-1 Disposition: Telemetry Fluids: None Feeding: Regular Thrombo prophylaxis: SCDs Gastric Ulcer prophylaxis: Pantoprazole CODE STATUS: Full code Attending Provider Attestation/Addendum I reviewed labs, imaging, EKG, home medications and prior available records. Face to face evaluation was performed by me. I have personally examined the patient and discussed assessment and plan with the IM team. I reviewed the resident note and agree with the plan with exceptions as below. Septic shock: Secondary to acute Providencia UTI. He is off pressors and downgraded from ICU. Urine culture showed Providencia that is sensitive to cephalosporins. Changed cefepime to ceftriaxone. Discontinued vancomycin after MRSA screening test is negative. Hematuria: Due to acute UTI versus renal stones. Consulted nephrology. Started Flomax.
[2024-03-20] MEDS: POTASSIUM CHL 10 mEq IVPB 10 MEQ/100 ML BAG 100 MEQ IV ×2 (11:18→13:00)
[2024-03-20] MEDS: cefTRIAXone/D5w 1gm IV premix 50 ML IV (11:25)
--- NOTE | 2024-03-20 12:57 | PC.NURSE ---
0830 PATIENT VERY DIFFICULT AND ARGUMENTIVE. iNFORMED OF MEDICATIONS ORDERED. REFUSED MIRALAX BECAUSE HE STATED IT WOULD CAUSE HIM TO HAVE LOOSE STOOLS AND HE DIDNT NEED IT. ASKED TO TAKE PHOSPHEROS POWER PUT IN WATER AND CONTINUED TO REFUSE BECAUSE HE DID NOT WANT TO GET LOOSE STOOLS. INFORMED THAT THIS MEDICATION IS NOT FOR PROMOTING STOOLS. AFTER MUCH INSISTANCE TOOK THE MEDICATION. PATIENT THEN GIVEN POTASSIUM ORDERED FOR LOW POTASSIUM LEVEL. AGAIN HE STATED TO ARGUE THAT HE CANNOT TAKE SO MANY MEDICATIONS. INFORMED HIM THAT IT IS IMPORTANT FOR HIS HEART AND WOULD BRING HIS OTHER MEDS LATER IF HE WOULD PLEASE TAKE THE POTASSIUM. PATIENT CONTINUED TO REFUSE AND ULTIMATELY ASKED THAT IT BE CHANGED TO IV. HOSPITALIST HAPPENED TO WALK IN AND I INFORMED THEM ABOUT THE ISSUES GIVING THE PATIENT MEDS ORDERED. POTASSIUM WOULD BE CHANGED TO IV. PATIENT TOOK HIS OTHER MEDS WHEN ASKED BY THE HOSPITALIST. 1000 PATIENT HAS ANTIBIOTIC RUNNING AND NEED TO START IV POTASSIUM. ATTEMPTED TO START ANOTHER LINE WITH HAVING TO TOLERATE THE PATIENTS CONSTANT INTERRUPTION. ASKED HIM TO PLEASE LET ME DO MY JOB, HE CONTINUED TO INTERRUPT. UNABLE TO ESTABLISH AND IV FOR THE POTASSIUM, ASKED ANOTHER NURSE TO TRY. 1230 PATIENT NOW COMPLAINING ABOUT THE IV POTASSIUM BURNING AND IS DISAPPOINTED THAT HE DID NOT TAKE IT BY MOUTH. ONLY ONE BAG GIVEN AND NOW HAD TO STOP THE ADMINISTRATION DUE TO LUNCH AND THE IV PUMP ALARMING PATIENT IS TRYING TO EAT HIS LUNCH.
[2024-03-20] MEDS: BACLOFEN 10 MG TABLET PO ×2 (13:19→18:43)
[2024-03-20 14:35] LABS: Cocci Serology, IgG Negative (Negative)
[2024-03-20] MEDS: TAMSULOSIN HCL 0.4 MG CAPSULE PO (15:34)
[2024-03-20] MEDS: FINASTERIDE 5 MG TABLET PO (15:35)
[2024-03-20] MEDS: POTASSIUM CHLORIDE 20 mEq TABCR 40 MEQ PO (15:35)
--- NOTE | 2024-03-20 18:10 | ESCONSULT_ITS ---
RE: MARY BETH WRIGHT : 1950 DATE OF CONSULTATION: 03/20/2024 CHIEF COMPLAINT: 1. Urinary retention. 2. Neurogenic bladder as a result of multiple back surgeries. 3. Scoliosis. 4. Hematuria. ESTABLISHED DIAGNOSES: 1. Anxiety. 2. Chronic back pain, on Baclofen and hydromorphone. 3. Osteoarthritis. 4. Paraplegia. 5. Right above-knee lower limb amputation. 6. Spinal laminectomy. HISTORY OF PRESENT ILLNESS: This is a 73-year-old gentleman. This patient has past medical history of anxiety. He was admitted in the hospital through the emergency room. He had gross hematuria and urinary tract infection. The patient was diagnosed with sepsis and the patient also has a past medical history of valley fever. He has indwelling Baker catheter for the last 3 months. Prior to that, he was able to urinate without Baker catheter and he has not been on intermittent catheterization. The patient had CAT scan of the abdomen and pelvis done and was found to have a bilateral renal calculi and had pneumonia. The patient was given IV fluids. He did not respond to that. He was started on Levophed for septic shock and vancomycin, cefepime and azithromycin. The patient is doing well. PAST MEDICAL HISTORY: As above. PAST SURGICAL HISTORY: He had multiple back surgeries done at [facility] in [place]. Last one was in 2022. He had spinal laminectomy. SOCIAL HISTORY: Marijuana, cocaine in the early 20s, smoked two to three cigarettes, quit in 1989. The patient lives in a snf and SNF unit. REVIEW OF SYSTEMS: All systems reviewed, normal except as documented. PHYSICAL EXAMINATION: General: Condition is satisfactory. The patient is alert and oriented. HEENT: Normocephalic, atraumatic. Chest: Symmetrical. Heart: Regular rate and rhythm. Abdomen: No masses. Genitalia: Has indwelling three-way Baker catheter. He has blood around the catheter. The patient has been started on continuous irrigation. His urine is completely clear. VARIOUS LABS: At the time of admission, his WBC was 31.9. Hemoglobin is 11.6, BUN is 20, creatinine 0.8. RECOMMENDATIONS: 1. Start him on tamsulosin 0.4 mg p.o. daily, finasteride 5 mg p.o. daily. 2. Continue with IV antibiotics. 3. Give him a trial of voiding in four days and hopefully he will be able to urinate without catheter. In the past he did not have indwelling Baker catheter until about three months ago. The reason for indwelling catheter was that the patient did not not like it to be taken out and also according to the patient, nurses were not giving him urinal on a regular time period. My recommendation will be to continue with medical management, continue with tamsulosin and finasteride. Followup appointment in urology office. Patient is going to need a complete urological workup DT: 15:50:30 TT: 18:08:00 Ref: [id number] - TID: [id number] MTDD
[2024-03-21] VITALS (7 sets, daily range): BP systolic 103–150; BP diastolic 65–98; PULSE 69–89; RESP 17–20; TEMP 36.3–36.6; O2SAT 93–99; BMI 23.4
[2024-03-21] MEDS: BACLOFEN 10 MG TABLET PO (00:30)
[2024-03-21] MEDS: ALPRazoLAM 0.25 MG TABLET 1 MG PO ×3 (00:30→12:30)
[2024-03-21] MEDS: HYDROMORPHONE HCL 2 MG TABLET 8 MG PO ×3 (00:30→14:44)
[2024-03-21 06:15] LABS: Basophils % (Auto) 0 % (0-2.5); Eosinophils # (Auto) 0.2 Thou/mm3 (0.0-0.5); Eosinophils % (Auto) 2 % (0-10); Hematocrit 29.1 % (41.0-53.0); Hemoglobin 9.8 g/dL (13.5-16.0); Immature Granulocytes % (Auto) 0 % (0-0); Immature Granulocytes Auto 0.02 Thou/mm3 (0.00-0.00); Lymphocytes # (Auto) 2.2 Thou/mm3 (1.0-4.8); Lymphocytes % (Auto) 24 % (10-50); Mean Corpuscular HGB Conc 33.7 g/dl (31.0-37.0); Mean Corpuscular Hemoglobin 27.3 pg (25.0-35.0); Mean Corpuscular Volume 81 fL (80-100); Monocytes # (Auto) 0.7 Thou/mm3 (0.0-0.8); Monocytes % (Auto) 7 % (0-12); Neutrophils % (Auto) 66 % (37-80); Nucleated Red Blood Cell % 0 /100 WBC (0); Platelet Count 424 Thou/mm3 (140-440); RDW Standard Deviation 47.6 fL (35.1-43.9); Red Blood Count 3.59 Miln/mm3 (4.50-5.90); White Blood Count 9.1 Thou/mm3 (3.8-10.6)
[2024-03-21 07:04] LABS: Alanine Aminotransferase < 7 U/L (10-49); Albumin, Serum 3.8 gm/dL (3.4-4.8); Albumin/Globulin Ratio 1.2 (1.2-2.2); Alkaline Phosphatase 82 U/L (46-116); Anion Gap 7 (7-16); Aspartate Amino Transferase 15 U/L (0-34); BUN/Creatinine Ratio 28 Ratio (12-20); Bilirubin,Total 0.3 mg/dL (0.3-1.2); Blood Urea Nitrogen 11 mg/dL (9-23); Calcium 9.3 mg/dL (8.3-10.6); Calcium (Corrected) 9.5 mg/dL (8.5-10.1); Carbon Dioxide 28.5 mMol/L (20.0-31.0); Chloride 102 mMol/L (98-107); Creatinine (Component) 0.4 mg/dL (0.6-1.3); Estimated Creatinine Clearance 150.6 mL/min (>60); Globulin 3.1 gm/dL (2.3-3.5); Glucose 91 mg/dL (74-106); Magnesium 1.7 mg/dL (1.6-2.6); Osmolality,Calculated 273 (275-295); Phosphorous 2.2 mg/dL (2.4-5.1); Potassium 4.4 mMol/L (3.4-5.1); Sodium 137 mMol/L (136-145); Total Protein 6.9 gm/dL (5.7-8.2); eGFR > 60 See Note
[2024-03-21] MEDS: NAPH,KPH MBDB 1 PACKET (1.5 GM) PO (09:33)
[2024-03-21] MEDS: PANTOPRAZOLE INJ 40 MG VIAL IV (09:33)
[2024-03-21] MEDS: Magnesium Sulfate 4 GM Ivpb 4 GM/50 ML BAG IV (09:33)
[2024-03-21] MEDS: FINASTERIDE 5 MG TABLET PO (09:33)
[2024-03-21] MEDS: cefTRIAXone/D5w 1gm IV premix 50 ML IV (09:33)
[2024-03-21] MEDS: DOCUSATE SOD 100 MG CAPSULE PO (09:33)
[2024-03-21] MEDS: FLUoxetine HCL 10 MG CAPSULE PO (09:33)
[2024-03-21] MEDS: AZITHROMYCIN 250 MG TABLET 500 MG PO (09:34)
[2024-03-21] MEDS: TAMSULOSIN HCL 0.4 MG CAPSULE PO (09:34)
--- NOTE | 2024-03-21 09:55 | PC.SS ---
Updated clinicals submitted to [facility] via [facility].
--- NOTE | 2024-03-21 09:56 | PC.SS ---
WIRE STRIPPING MACHINE OPERATOR confirmed with bedside nurse that patient is currently receiving IV antibiotics.
--- NOTE | 2024-03-21 09:56 | PC.SS ---
Update: Plan is to d/c patient today. Patient to return to SNF.
--- NOTE | 2024-03-21 10:06 | PD.RESDS ---
Planned Discharge Date 03/21/24 DS: Providers Provider Date of admission: 03/18/24 11:47 Primary care physician: Geeta Boston MD Admitting Provider: Richar Manning MD Attending Provider on Admission: Jared Thompson MD Consults: 03/18/24 09:36 Consult to Urology Stat Comment: Gross hematuria. 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 Patient admitted to the ICU for septic shock secondary to UTI versus pneumonia and management of hematuria. During hospital stay patient was managed with vasopressors in order to maintain MAP above 65 was successfully weaned off and downgraded to the floors. While on the floors antibiotic therapy for sepsis was narrowed to ceftriaxone and azithromycin. Urology Dr Mendoza was consulted for patient's chronic indwelling catheter and hematuria and he recommends putting the patient on Flomax and finasteride and to perform a voiding trial in 4 days at SNF and to follow-up with urology office. The patient's history of chronic back pain and right [id number] amputation pain was managed with Dilaudid. Wound care was ordered for his pressure ulcers. For his depression fluoxetine was given as taken at home. Patient at this time is medically stable for discharge. Per urology recommendations, Baker is to be clamped for voiding trial after 4 days, from discharge, and can be removed if patient passes voiding trial. Follow-up with urologist Dr. Mendoza in clinic 1 to 2 weeks from discharge. Recommend to continue antibiotics azithromycin for 5 more days for treatment of pneumonia, recommend continuing 10 days of Cefpodoxime for complicated UTI. In case of worsening symptoms please turn to the emergency room. Problem list: #Septic shock-resolved #Sepsis secondary to UTI-resolved #Healthcare associated pneumonia- resolved #Hx Chronic indwelling Baker catheter #Hematuria #Renal calculi #Constipation #Hx thrombocytosis # History of chronic back pain # History right above-knee amputation #Hx pressure ulcers #Ulcer left calf, active #Hx depression Case discussed with my attending Dr. Jay Norris MD PGY-1 Status at Discharge Functional status at discharge: bed bound Overall status at discharge: patient is back to baseline Time Spent with Patient Time attestation: Total time spent providing and/or coordinating discharge services: Time spent: Greater than 30 minutes Exam Vital Signs Temp Pulse Resp BP Pulse Ox O2 Del Method O2 Flow Rate 97.9 F 82 18 103/65 99 Room Air 1 03/21/24 08:00 03/21/24 08:00 03/21/24 08:00 03/21/24 08:00 03/21/24 08:00 03/21/24 08:00 03/21/24 06:07 Narrative Exam Physical Exam GENERAL: NAD, AAOx3 HEENT: Moist mucosa. Eyes open, symmetrical, & clear CARDIO: Heart RRR, no obvious murmurs PULM: No noted coughing/dyspnea CTA B/L, no R/W/R GI: Abdomen soft, nondistended, no pain on palpation. BSx4 SKIN/MSK/EXT: Paraplegic w/ right aka NEURO: AAOx3, no focal neuro deficits, able to move all 4 extremities Discharge Plan Plan Patient Disposition: Xfer Skilled Nsg Fac (SNF) Care Plan Goals: Per urology recommendations, Baker is to be clamped for voiding trial after 4 days, from discharge, and can be removed if patient passes voiding trial. Follow-up with urologist Dr. Mendoza in clinic 1 to 2 weeks from discharge. Recommend to continue antibiotics azithromycin for 5 more days for treatment of pneumonia, recommend continuing 10 days of Cefpodoxime for complicated UTI. In case of worsening symptoms please turn to the emergency room. Prescriptions/Referrals Prescriptions/Med Rec: New tamsulosin 0.4 mg Capsule 0.4 mg PO QDAY 30 Days Qty: 30 0RF finasteride 5 mg Tablet 5 mg PO QDAY 30 Days Qty: 30 0RF azithromycin 500 mg tablet 500 mg PO QDAY 5 Days Qty: 5 0RF cefpodoxime 200 mg tablet 200 mg PO BID Qty: 20 0RF Rx Instructions: must administer with a meal/food Continued alprazolam [Xanax] 1 mg Tablet 1 mg PO Q6H ascorbic acid (vitamin C) [Vitamin C] 500 mg Tablet 500 mg PO BID pantoprazole [Protonix] 40 mg Tablet,Delayed Release (Dr/Ec) 40 mg PO BID senna-docusate sodium Capsule 1 cap PO BID PRN (Reason: Constipation) polyethylene glycol 3350 [Miralax] 17 gram Powder In Packet 17 g PO HS fluoxetine 10 mg Tablet 10 mg PO QDAY folic acid 1 mg Tablet 1 mg PO BID Pro-Stat Sugar Free 15-100 gram-kcal/30 mL Liquid 1 ea PO BID baclofen 10 mg Tablet 10 mg PO Q6H PRN (Reason: Muscle Spasm) ibuprofen 200 mg Tablet 600 mg PO Q6H PRN (Reason: Pain, Moderate) hydromorphone 4 mg Tablet 8 mg PO Q4H PRN (Reason: Pain, Severe) ondansetron HCl 4 mg Tablet 4 mg PO Q6H PRN (Reason: nausea AND VOMITTING) oxymetazoline 0.05 % Mist 2 spray INTRANASAL Q12H PRN (Reason: NASAL CONGESTION) fluconazole 200 mg tablet 400 mg PO QDAY 30 Days Qty: 60 6RF Discontinued sulfamethoxazole-trimethoprim [Bactrim] 400-80 mg tablet 1 tab PO QDAY Qty: 7 0RF Referrals: Jonny Mendoza MD [Physician] - Geeta Boston MD [Primary Care Provider] - Patient/Caregiver Discharge Instructions Print Language: Yoruba Stand Alone Forms: [facility]iana Award Info., Patient Portal Info Letter Discharge Order Discharge Orders: Discharge (Routine); Ordered 03/21/24 Ordered By: Saroj Norris Quality Discharge Quality Measures VTE prophylaxis Attestestation Attestation I reviewed labs, imaging, EKG, home medications and prior available records. Face to face evaluation was performed by me. I have personally examined the patient and discussed assessment and plan with the IM team. I reviewed the resident note and agree with the plan with exceptions as below. Septic shock: Secondary to acute Providencia UTI. He is off pressors and downgraded from ICU. Urine culture showed Providencia that is sensitive to cephalosporins. Will discharge on azithromycin and cefpodoxime. Hematuria: Due to acute UTI versus renal stones. Consulted urology: Recommended to continue Flomax and tamsulosin. Keep Baker catheter for few days. Follow-up as outpatient with urology. Time spent is 40 minutes. More than 50% of the time was spent on patient education and coordination of care.
--- NOTE | 2024-03-21 12:49 | PC.SS ---
SHOW DESIGN SUPERVISOR contacted [facility] transport to initiate transport. Preferred vendor [employer]. Reference #[id number].
--- NOTE | 2024-03-21 14:33 | PC.SS ---
CURRICULUM SPECIALIST contacted transport to confirm if [employer] has provided authorization. CURRICULUM SPECIALIST informed authorization pending. Transport on will call for 04:00 pm.
--- NOTE | 2024-03-21 14:34 | PC.SS ---
ASW SPECIALIST confirmed with patient plan to resume hospice services upon discharge to SNF with [facility]. ASW SPECIALIST to submit referral on [facility]. Bedside nurse and attending updated.
--- NOTE | 2024-03-21 14:41 | PC.SS ---
Hospice referral submitted on [facility]. Response pending.
--- NOTE | 2024-03-21 15:19 | PC.SS ---
[facility] transport contacted CIVIL ESTIMATOR confirming authorization to provide transport. Transport time scheduled for 4:30 pm today. CIVIL ESTIMATOR notified patient, SNF and bedside nurse.
--- NOTE | 2024-03-21 16:08 | PC.SS ---
Transport pushed back to 05:30 pm. Bedside nurse, patient and SNF updated.
== END 2024-03-21 16:50 | disposition skilled nursing facility (03) | DRG 871 ==
LOC: SERX 06:27 → SERHOLD 12:05 → S2SX 18:49 → S2NX 03-19 15:16
PROVIDERS: Emergency Medicine; Student in an Organized Health Care Education/Training Program; Admitting Provider Internal Medicine Critical Care Medicine; Emergency Provider Emergency Medicine; PCP Hospitalist; Visit Provider Student in an Organized Health Care Education/Training Program
DX: A41.59 Other Gram-negative sepsis (principal); J18.9 Pneumonia, unspecified organism; L89.314 Pressure ulcer of right buttock, stage 4; R65.21 Severe sepsis with septic shock; G82.20 Paraplegia, unspecified; L97.229 Non-pressure chronic ulcer of left calf with unspecified severity; N39.0 Urinary tract infection, site not specified; N20.0 Calculus of kidney; K59.00 Constipation, unspecified; D75.838 Other thrombocytosis; F32.A Depression, unspecified; F41.9 Anxiety disorder, unspecified; G89.29 Other chronic pain; I73.9 Peripheral vascular disease, unspecified; M19.90 Unspecified osteoarthritis, unspecified site; M41.9 Scoliosis, unspecified; N31.9 Neuromuscular dysfunction of bladder, unspecified; N40.0 Benign prostatic hyperplasia without lower urinary tract symptoms; Z46.6 Encounter for fitting and adjustment of urinary device; Z89.611 Acquired absence of right leg above knee; Y95 Nosocomial condition; Z87.891 Personal history of nicotine dependence; Z86.16 Personal history of COVID-19; Z87.01 Personal history of pneumonia (recurrent); Z79.899 Other long term (current) drug therapy
CPT/HCPCS: 36415; 71045; 71260; 74177; 80048; 80053; 80202; 81001; 82803; 83605; 83615; 83690; 83735; 83880; 84100; 84145; 84484; 85025; 85610; 85730; 86331; 86635; 86850; 86870; 86900; 86901; 86921; 86922; 87040; 87077; 87081; 87086; 87186; 87205; 87400; 87502; 87634; 87811; 89220; 93005; 96361; 96365; 96366; 96367; 96368; 99291; A4649; J0131; J0456; J0692; J0696; J1171; J1450; J2470; J2543; J3370; J3475; J3480; J3490; J7030; J7050; P9016; Q9967; 94640; A9270

== ENCOUNTER 2024-06-28 21:04 | Inpatient (IN) | payer MEDICARE, MEDICAID, SELFPAY ==
[2024-06-28] VITALS (14 sets, daily range): BP systolic 46–112; BP diastolic 28–69; PULSE 72–106; RESP 12–28; TEMP 36.4–36.9; O2SAT 91–100; BMI 21.1
--- NOTE | 2024-06-28 21:06 | EDNOTE_ITS ---
Altered Mental Status RME/HPI General Chief Complaint: Altered Mental Status Stated Complaint: ALTERED Time Seen by Provider: 06/28/24 21:20 Arrival date/time: 06/28/24 21:04 RME / HPI RME / HPI narrative: This section includes all my notes and documentations, including HPI, PE, and ED course. Rebel Anderson MD HPI: 73 y/o male with Hx of Atrial Fibrillation, Peripheral Vascular Disease, Hypotension, Neurogenic Bladder, Arthritis, Anemia, Depression and Anxiety, AKA presents to ED BIBA from [facility] due to altered mental status x approximately 1 hour ago. Per EMS, patient was alert and talking at 8 PM, but when nursing staff went to give patient his medication, he was unresponsive. I talked to his sister on the phone. He is normally fully awake and fully oriented. Can't obtain history from the patient due to AMS. ROS: Can't obtain history from the patient due to AMS. Physical Exam: General: Unresponsive. Eyes: Conjunctivae and lids clear. PERRL. ENT: No nasal congestion. Neck: Supple. No carotid bruit. No JVD. Heart: RRR. Lungs: No respiratory distress. Moderately decreased air movement with bilateral rales. Abdomen: Soft. Legs: Right BKA noted. Skin: Warm and dry. Many large sacral decubitus ulcers, varying in size and shape and stage. Neuro: GCS 3. I reviewed EMS and penitentiary notes. Trial of Narcan and flumazenil given with improvement of mental status. I reviewed all diagnostic test results. My interpretation of the EKG is sinus rhythm with no acute ST?T changes. My interpretation of the chest x-ray is bilateral infiltrates. My review of the head CT report is NAD. My review of the chest/abdomen/pelvis CT report is pneumonia. Blood tests and urine tests remarkable for CRP 8.8 and UTI. Influenza positive. UDS positive for opiates and benzodiazepines. At this point, diagnoses include: Sepsis, Decubitus ulcer, Pneumonia, AMS (altered mental status), UTI (urinary tract infection), Influenza Treatment here included IV fluid, Rocephin, vancomycin, and Tamiflu. Significant improvement not noted. I discussed the case with our hospitalist. About the presentation and exam and diagnostics and treatments here. And need of further care in the hospital. Will accept the patient. Rebel Anderson MD Related Data Home Medications ?Medication ?Instructions ?Recorded ?Confirmed alprazolam 1 mg tablet (Xanax) 1 mg PO Q6H 06/27/23 amino acids-protein hydrolysate 15 1 ea PO BID 4 03/19/24 gram-100 kcal/30 mL oral liquid (Pro-Stat Sugar Free) ascorbic acid (vitamin C) 500 mg 500 mg PO BID 4 03/19/24 tablet (Vitamin C) fluoxetine 10 mg tablet 10 mg PO QDAY 06/27/2303/19 folic acid 1 mg tablet 1 mg PO BID 06/27/23 5 pantoprazole 40 mg tablet,delayed 40 mg PO BID 4 03/19/24 release (Protonix) polyethylene glycol 3350 17 gram 17 g PO HS 06/27/23 0 03/19/24 oral powder packet (Miralax) senna-docusate sodium capsule 1 cap PO BID PRN Constip ation 06/27/23 03/19/24 baclofen 10 mg tablet 10 mg PO Q6H PRN Muscle Spas m 09/21/23 03/19/24 hydromorphone 4 mg tablet 8 mg PO Q4H PRN Pain, Severe 09/21/23 03/19/24 ibuprofen 200 mg tablet 600 mg PO Q6H PRN Pain, Mode rate 09/21/23 03/19/24 ondansetron HCl 4 mg tablet 4 mg PO Q6H PRN nausea AND 09/21/23 03/19/24 VOMITTING oxymetazoline 0.05 % nasal mist 2 spray intranasal Q12 H PRN NASAL 09/21/23 03/19/24 CONGESTION Previous Rx's ?Medication ?Instructions ?Recorded fluconazole 200 mg tablet 400 mg (2 x 200 mg) PO QDAY 1 09/23/23 month #60 tabs cefpodoxime 200 mg tablet 200 mg PO BID #20 tabs 03/21 Allergies Allergy/AdvReac Type Severity Reaction Status Date / Time No Known Allergies Allergy Verified 06/26/23 16:49 Review of Systems Review of Systems ROS Unobtainable: unobtainable due to mental status Past Medical History Past Medical History NEUROLOGIC: Positive Neurological Disorders CARDIAC: Positive Atrial Fibrillation, Peripheral Vascular Disease and Hypotension RESPIRATORY: Positive Pneumonia GENITOURINARY: Positive Neurogenic Bladder MUSCULOSKELETAL: Positive Musculoskeletal Disorders and Arthritis HEMATOLOGIC: Positive Blood Disorders and Anemia PSYCHO/SOCIAL: Positive Depression and Anxiety OTHER HISTORY: Positive Hospitalization, Blood Transfusions and MRSA Surgical History SURGICAL: Positive Amputation ED Exam Narrative Physical exam: Refer to HPI above. Course Quality Measures none Orders Category Date Time Status Bedside COVID-19 Antigen Test NOW Care 06/28/24 21:12 Active Bedside Influenza A&B Antigen Test NOW [facility] 06/28/24 21:12 Completed COVID-19 Screening Questionnaire NOW Care 06/29/24 00:[address] Screening NOW Care 06/28/24 21:17 Active Decision to Admit X1 Care 06/29/24 00:05 Active EKG (ED ONLY) *Do not use* NOW Care 06/28/24 21:17 Completed Baker [Urinary Catheter] QS Care 06/28/24 22:52 Active Saline [Insert IV] NOW Care 06/28/24 21:[address] chest abdomen pelvis wo Stat Exams 06/28/24 22:[address] head/brain wo con Stat Exams 06/28/24 21:18 Completed EKG (ED Only) Stat Exams 06/28/24 21:17 Ordered XR chest 1V portable Stat Exams 06/28/24 21:17 Completed ABG [Arterial Blood Gas] Stat Lab 06/28/24 22:00 Completed Ammonia Stat Lab 06/28/24 21:52 Completed BNP [B-Type Natriuretic Peptide] Stat Lab 06/28/24 21:52 Completed Beta Hydroxybutyrate Stat Lab 06/28/24 21:52 Completed Bilirubin,Direct Stat Lab 06/28/24 21:52 Completed Blood Culture (Lab) Stat Lab 06/28/24 21:56 Received CBC Stat Lab 06/28/24 21:52 Completed CK [Creatine Kinase] Stat Lab 06/28/24 21:52 Completed CMP [Comprehensive Metabolic Panel] Stat Lab 06/28/24 21:52 Completed CRP [C-Reactive Protein] Stat Lab 06/28/24 21:52 Completed D-Dimer Stat Lab 06/28/24 21:52 Completed Drug Screen,Urine Stat Lab 06/28/24 22:23 Completed ESR [Sed Rate (ESR)] Stat Lab 06/28/24 21:52 Completed Free T4 (Free Thyroxine) Stat Lab 06/28/24 21:52 Completed Lactate (Lactic Acid) Stat Lab 06/28/24 21:52 Completed Lipase Stat Lab 06/28/24 21:52 Completed Magnesium Stat Lab 06/28/24 21:52 Completed PT [Prothrombin Time with INR] Stat Lab 06/28/24 21:52 Completed PTT [Partial Thromboplastin Time] Stat Lab 06/28/24 21:52 Completed Procalcitonin Stat Lab 06/28/24 21:52 Completed RSV [Respiratory Syncytial Virus Ag] Stat Lab 06/28/24 21:19 Ordered Strep A Rapid Stat Lab 06/28/24 21:19 Ordered TSH [Thyroid Stimulating Hormone] Stat Lab 06/28/24 21:52 Completed Troponin I Stat Lab 06/28/24 21:52 Completed UA, C/S IF [Urinalysis, C/S if Indicated] Stat Lab 06/28/24 21:56 Completed Urine Culture Stat Lab 06/28/24 21:56 Received Dextrose 5%-Water [D5w] 498 ml Med 06/28/24 21:45 Active NALOXONE INJ (Syringe) [Narcan Inj (Syringe)] 2 mg IV 10 mls/hr NALOXONE INJ (Vial) [Narcan Inj (Vial)] Med 06/28/24 21:12 Discontinued 2 mg IV X1 ONE Oseltamivir [Tamiflu] Med 06/28/24 23:21 Discontinued 75 mg PO X1 ONE Sodium Chloride 0.9% 1000 ml [Ns] 1,000 ml Med 06/28/24 21:12 Discontinued IV 999 mls/hr Sodium Chloride 0.9% 1000 ml [Ns] 1,000 ml Med 06/28/24 21:15 Discontinued IV 999 mls/hr Vancomycin Inj 1,000 mg Med 06/28/24 23:07 Discontinued Sodium Chloride 0.9% 500 ml [Ns] 500 ml IV X1 cefTRIAXone [Rocephin] 1,000 mg Med 06/28/24 21:15 Discontinued SODIUM CHLORIDE 0.9% (Popper) [Ns 0.9% (P)] 50 ml IV X1 flumazeniL [Romazicon Inj] Med 06/28/24 21:12 Discontinued 0.2 mg IVP X1 ONE Vital Signs Vital signs: Vital Signs Temperature 98.4 F 06/28/24 21:05 Pulse Rate 93 04/18/25 21:05 Respiratory Rate 22 H 06/28/24 21:05 Blood Pressure 75/50 L 06/28/24 21:05 Pulse Oximetry (%) 100 06/28/24 21:05 Oxygen Delivery Method Room Air 06/28/24 21:05 Altered Mental Status MDM Narrative MDM Narrative:: Scribe Attestation: I, Haley Swanson, am scribing for and in the presence of Dr. Anderson. Provider Notation: Although this document has been carefully reviewed, there may still be some phonetic and other typographical errors.? These errors are purely grammatical due to imperfections in the software program and should not be construed in any way to? compromise the substance of the patient's medical care during this visit. 73 y/o male with Hx of Atrial Fibrillation, Peripheral Vascular Disease, Hypotension, Neurogenic Bladder, Arthritis, Anemia, Depression and Anxiety, Amputation presents to ED [facility] from [facility] due to altered mental status x approximately 1 hour ago. Per EMS, patient was alert and talking at 8 PM, but when nursing staff went to give patient his medication, he was unresponsive. No other complaints reported. Patient data External records reviewed:: [facility] previous records (Prior ED records reviewed from 03/21/24 for Hematuria.), EMS form and Long-Term records Clinical information provided by:: EMS Social determinants that could affect healthcare access:: none Patient has the following chronic illnesses:: Atrial Fibrillation, Peripheral Vascular Disease, Hypotension, Neurogenic Bladder, Arthritis, Anemia, Depression and Anxiety, Amputation How is presenting disease/condition affected by chronic disease/condition?: exacerbated by Evaluation data The following diagnostics were reviewed and interpreted by me:: lab results, radiology exam(s) and EKG tracing(s) (My interpretation of the EKG is: Sinus rhythm (93 bpm) with PACs and right BBB and nonspecific ST-T changes. Rebel Anderson MD) Lab and/or radiology exams considered but not ordered:: None Interpretation Summary: Sepsis, Decubitus ulcer, Pneumonia, AMS (altered mental status), UTI (urinary tract infection), Influenza Medications / Prescriptions Medications or Prescriptions considered but not ordered:: None Medication administrations:: Medication Administration History Acetaminophen (Acetaminophen 325 Mg Tablet) 650 mg PO Q6H PRN PRN Reason: PAIN OR FEVER > 100.4 Stop: 07/29/24 01:10 Ascorbic Acid (Ascorbic Acid 250 Mg Tablet) 500 mg PO BID [facility] Stop: 07/29/24 08:59 Bisacodyl (Bisacodyl 10 Mg Supp) 10 mg HI QDAY PRN; Protocol PRN Reason: Constipation Stop: 07/29/24 01:15 Finasteride (Finasteride 5 Mg Tablet) 5 mg PO QDAY [facility] Stop: 07/29/24 08:59 Folic Acid (Folic Acid 1 Mg Tablet) 1 mg PO BID [facility] Stop: 07/29/24 08:59 Heparin Sodium (Porcine) (Heparin Sod Inj 5000 Unit/Ml Vial) 5,000 unit SC BID [facility] Stop: 07/13/24 08:59 Naloxone HCl 2 mg/ Dextrose 500 mls @ 10 mls/hr IV .Q24H [facility] Stop: 07/28/24 21:44 Last Admin: 06/28/24 21:46 Dose: Not Given Documented By: RC Non-Admin Reason: Duplicate Medication on eMAR Ceftriaxone Sodium/Dextrose (Rocephin/D5w 1gm Iv Premix) 1 gm in 50 mls @ 100 mls/hr IV QDAY [facility] Stop: 07/06/24 01:21 Last Admin: 06/29/24 02:02 Dose: Not Given Documented By: RC Non-Admin Reason: Duplicate Medication on eMAR Doxycycline Hyclate 100 mg/ (Sodium Chloride) 100 mls @ 100 mls/hr IV BID [facility] Stop: 07/06/24 08:59 Magnesium Hydroxide (Milk Of Magnesia Susp 30 Ml Udc) 30 ml PO QDAY PRN; Protocol PRN Reason: CONSTIPATION Stop: 07/29/24 01:15 Multivitamins (Multivitamins Tablet) 1 tab PO QDAY [facility] Stop: 07/29/24 08:59 Ondansetron HCl (Ondansetron Inj 2 Mg/Ml Inj 2 Ml) 4 mg IV Q6H PRN; Protocol PRN Reason: NAUSEA OR VOMITING Stop: 07/29/24 01:15 Oseltamivir Phosphate (Oseltamivir 75 Mg Capsule) 75 mg PO BID [facility] Stop: 07/06/24 08:59 Pantoprazole Sodium (Pantoprazole Inj 40 Mg Vial) 40 mg IV QDAY [facility] Stop: 07/29/24 08:59 Polyethylene Glycol (Polyethylene Glycol 17 Gm Packet) 17 gm PO QDAY [facility] Stop: 07/29/24 08:59 Tamsulosin HCl (Tamsulosin Hcl 0.4 Mg Capsule) 0.4 mg PO QDAY [facility] Stop: 07/29/24 08:59 Discontinued Medications Flumazenil (Flumazenil Inj 0.1 Mg/Ml Vial 10 Ml) 0.2 mg IVP X1 ONE Stop: 06/28/24 21:13 Last Admin: 06/28/24 22:00 Dose: 0.2 mg Documented By: AKIKO Sodium Chloride (Ns) 1,000 mls @ 999 mls/hr IV .Q1H1M ONE Stop: 06/28/24 22:12 Last Infusion: 06/28/24 22:46 Dose: Infused Documented By: Admin: 06/28/24 21:45 Dose: 999 mls/hr Documented By: AKIKO Ceftriaxone Sodium 1,000 mg/ (Sodium Chloride) 50 mls @ 100 mls/hr IV X1 ONE Stop: 06/28/24 21:44 Last Infusion: 06/28/24 22:40 Dose: Infused Documented By: Admin: 06/28/24 22:00 Dose: 100 mls/hr Documented By: AKIKO Sodium Chloride (Ns) 1,000 mls @ 999 mls/hr IV .Q1H1M ONE Stop: 06/28/24 22:15 Last Admin: 06/28/24 23:25 Dose: Not Given Documented By: AKIKO Non-Admin Reason: Cancelled by Provider Vancomycin HCl 1,000 mg/ (Sodium Chloride) 500 mls @ 150 mls/hr IV X1 ONE Stop: 06/29/24 02:26 Last Admin: 06/29/24 00:38 Dose: 150 mls/hr Documented By: AKIKO Doxycycline Hyclate 100 mg/ (Sodium Chloride) 100 mls @ 100 mls/hr IV X1 ONE Stop: 06/29/24 02:44 Last Admin: 06/29/24 02:59 Dose: 100 mls/hr Documented By: AKIKO Sodium Chloride (Ns) 500 mls @ 999 mls/hr IV .Q31M ONE Stop: 06/29/24 03:09 Last Infusion: 06/29/24 03:24 Dose: Infused Documented By: Admin: 06/29/24 02:41 Dose: 999 mls/hr Documented By: Naloxone HCl (Naloxone Inj 0.4 Mg/Ml Vial) 2 mg IV X1 ONE Stop: 06/28/24 21:13 Last Admin: 06/28/24 21:45 Dose: 2 mg Documented By: AKIKO Co-signed By: Oseltamivir Phosphate (Oseltamivir 75 Mg Capsule) 75 mg PO X1 ONE Stop: 06/28/24 23:22 Last Admin: 06/29/24 03:23 Dose: Not Given Documented By: AKIKO Non-Admin Reason: Unable to Swallow From me, patient received IV fluid, Narcan, flumazenil, Rocephin, vancomycin, and Tamiflu in the ED. Consultations Consultation(s) initiated? (list below): No Diagnosis Differential diagnosis altered mental status: alcoholic intoxication, altered mental status, delirium, dementia, hypoglycemia, hyponatremia, subarachnoid hemorrhage, sepsis and other (Substance overdose, CVA, brain tumor, MD, UTI, pneumonia) Most likely diagnosis given after review of the tests above:: Sepsis, Decubitus ulcer, Pneumonia, AMS (altered mental status), UTI (urinary tract infection), Influenza Admission Indicated Admission indicated?: indicated Explain why admission is indicated or not indicated:: Sepsis, Decubitus ulcer, Pneumonia, AMS (altered mental status), UTI (urinary tract infection), Influenza Admission Request Was there a request for admission?: Yes Admission Attestation Admission request attestation: Discussed case with Hospitalist service regarding admission. Discussed patients ED course, exam findings, labs, and radiology results. The Hospitalist [agrees] to accept the patient for admission. Disposition Plan Disposition Plan: Admit Critical Care Time Critical Care Time Critical Care Time: Yes Total Critical Care Time (min.): 36 Attestation: Due to a high probability of clinically significant, life threatening deterioration, the patient required my highest level of preparedness to intervene emergently and I personally spent this critical care time directly and personally managing the patient. This critical care time included obtaining a history; examining the patient; ordering and review of studies; arranging urgent treatment with development of a management plan; evaluation of patient's response to treatment; frequent reassessment; and discussions with family and other providers. It was exclusive of separately billable procedures and treating other patients and teaching time. Rebel Anderson MD Discharge Plan Plan Patient Disposition: Admit Acute Care w/in Hospital Problem List Clinical Impression: Sepsis, Decubitus ulcer, Pneumonia, AMS (altered mental status), UTI (urinary tract infection), Influenza
--- NOTE | 2024-06-28 21:17 | XR_ITS ---
Examination: AP chest single view Technique one AP portable chest single view Exam date and time: 10/28/20247 hrs. Comparison January 16, 2025 Indication: Chest pain today. Findings: Mild prominence of ventricle Left base pneumonia Mild vascular congestion Ectatic thoracic aorta Impression: Bibasilar pneumonia
--- NOTE | 2024-06-28 21:18 | XR_ITS ---
Examination: CT brain head without contrast. 2-D sagittal coronal reconstructions Date and time of exam:June 28, 2024 1116 hrs. Indications: Onset altered mental status today CTDI: vol (mGy):14.3 DLP: (mGycm):151 Technique: Multiple CT axial sections of the brain have been obtained, 5 mm slice thickness. Contrast has not been administered. 2-D sagittal, coronal reconstructions have been obtained Low dose protocols were performed. One or more of the following dose reduction techniques were used; automated exposure control, adjustment of the mA and/or KV according to patient size, use of iterative reconstruction technique. Findings: Patient is not cooperative with injury to patient motion and Nonstandard scanning Impression: Nondiagnostic study, repeat
[2024-06-28] MEDS: SODIUM CHLORIDE 0.9% 1000 ML 1,000 ML 999 ML IV (21:45)
[2024-06-28] MEDS: NALOXONE INJ 0.4 MG/ML VIAL 2 MG IV (21:45)
--- NOTE | 2024-06-28 21:50 | PC.NURSE ---
AFTER GIVING NARCAN PT RESPIRATIONS INCREASED AND PT BEGAN MOANING. MADE AWARE.
[2024-06-28] MEDS: cefTRIAXone 1,000 MG in SODIUM CHLORIDE 0.9% (Popper) 50 ML 100 MG IV (22:00)
[2024-06-28] MEDS: FLUMAZENIL INJ 0.1 MG/ML VIAL 10 ML 0.2 MG IVP (22:00)
[2024-06-28 22:06] LABS: Lactate (Lactic Acid) 1.8 mMol/L (0.4-2.0)
[2024-06-28 22:09] LABS: Base Excess 0 (-3-3); HCO3 24 mEq/L (20-26); Inspired Oxygen, FIO2 21 %; O2 Saturation 99 % (91-98); PCO2 35 mmHg (32.0-48.0); PO2 82 mmHg (83-108); pH, Arterial 7.44 (7.35-7.45)
[2024-06-28 22:10] LABS: Basophils % (Auto) 0 % (0-2.5); Eosinophils % (Auto) 0 % (0-10); Hematocrit 28.2 % (41.0-53.0); Hemoglobin 8.9 g/dL (13.5-16.0); Immature Granulocytes % (Auto) 1 % (0-0); Immature Granulocytes Auto 0.04 Thou/mm3 (0.00-0.00); Lymphocytes # (Auto) 0.4 Thou/mm3 (1.0-4.8); Lymphocytes % (Auto) 4 % (10-50); Mean Corpuscular HGB Conc 31.6 g/dl (31.0-37.0); Mean Corpuscular Hemoglobin 25.1 pg (25.0-35.0); Mean Corpuscular Volume 79 fL (80-100); Monocytes # (Auto) 0.5 Thou/mm3 (0.0-0.8); Monocytes % (Auto) 5 % (0-12); Neutrophils # (Auto) 7.6 Thou/mm3 (1.8-7.7); Neutrophils % (Auto) 90 % (37-80); Nucleated Red Blood Cell % 0 /100 WBC (0); Platelet Count 357 Thou/mm3 (140-440); RDW Standard Deviation 55.8 fL (35.1-43.9); Red Blood Count 3.55 Miln/mm3 (4.50-5.90); White Blood Count 8.4 Thou/mm3 (3.8-10.6)
[2024-06-28 22:16] LABS: Allen Test Performed/OK; Puncture Site Left Brachial
[2024-06-28 22:19] LABS: Collection Type, Urine Clean Catch; Squamous Epithelial Cell,Urine 0 /hpf (0-5)
[2024-06-28 22:21] LABS: D-Dimer 594 ng/mL (<600)
[2024-06-28 22:26] LABS: INR 1.3 (0.9-1.3); Partial Thromboplastin Time 34.6 Seconds (22.0-36.0); Prothrombin Time 14.4 Seconds (9.0-12.2)
[2024-06-28 22:27] LABS: Sed Rate (ESR) 19 mm/hr (0-20)
[2024-06-28 22:29] LABS: Ammonia < 10 uMol/L (11-32)
[2024-06-28 22:37] LABS: Bacteria,Urine 1+; Bilirubin,Urine Negative (Negative); Blood,Urine 2+ (Negative); Color,Urine Yellow (Lt Yel-Yel); Glucose, Urine Negative (Negative); Ketones,Urine Negative (Negative); Leukocyte Esterase,Urine Positive (Negative); Nitrite,Urine Negative (Negative); PH,Urine 6.5 (5.0-7.0); Protein,Urine 1+ (Neg - Trace); RBC,Urine 33 /hpf (0-3); Specific Gravity,Urine 1.013 (1.001-1.035); WBC,Urine 3308 /hpf (0-5)
--- NOTE | 2024-06-28 22:39 | XR_ITS ---
Examination: CT chest, without intravenous contrast. CT abdomen, without intravenous contrast. CT pelvis, without intravenous contrast. 2-D sagittal and coronal reconstructions. 3-D reconstructions. Date and time of exam:June 28, 2024 1122 hrs. Indications: Shortness of breath chest pain abdominal pain today CTDI vol (mgy) 14.1 DLP (MGycm)1134 Technique: Multiple CT images, 3.0 mm slice thickness, obtained chest, abdomen, pelvis, with the high-resolution 64 slice scanner.. Sagittal and coronal 2-D reconstructions are obtained. 3-D reconstructions Low dose protocols were performed. One or more of the following dose reduction techniques were used; automated exposure control, adjustment of the mA and/or KV according to patient size, use of iterative reconstruction technique. Findings: Nonstandard views No thoracic aortic aneurysm dilatation Pulmonary artery segments are not enlarged Pneumonia left base, elevation left hemidiaphragm No visualized liver or splenic lesion No gallstones No definite pancreatic mass Abdominal aorta is not enlarged Numerous bilateral renal calculi, largest on the right side 8 mm left side 6 mm No hydronephrosis or ureteral calculi Abundant stool throughout the colon Normal appendix Very large amounts of stool in the rectum with thickening the rectal wall Transverse prostate dimension 3.9 cm Urinary bladder contracted around a Baker catheter 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
[2024-06-28 22:41] LABS: Clarity,Urine Turbid (Clear/Hazy); Culture Indicated,Urine Yes
[2024-06-28 22:44] LABS: Anion Gap 8 (7-16); BUN/Creatinine Ratio 23 Ratio (12-20); Bilirubin,Direct 0.1 mg/dL (0.0-0.3); Bilirubin,Total 0.2 mg/dL (0.3-1.2); Blood Urea Nitrogen 18 mg/dL (9-23); Calcium 7.8 mg/dL (8.3-10.6); Carbon Dioxide 25.8 mMol/L (20.0-31.0); Chloride 103 mMol/L (98-107); Creatinine (Component) 0.8 mg/dL (0.6-1.3); Glucose 131 mg/dL (74-106); Magnesium 1.7 mg/dL (1.6-2.6); Osmolality,Calculated 277 (275-295); Potassium 3.8 mMol/L (3.4-5.1); Sodium 137 mMol/L (136-145); eGFR > 60 See Note
[2024-06-28 22:45] LABS: Alanine Aminotransferase < 7 U/L (10-49); Albumin, Serum 2.4 gm/dL (3.4-4.8); Albumin/Globulin Ratio 0.8 (1.2-2.2); Alkaline Phosphatase 68 U/L (46-116); Aspartate Amino Transferase 17 U/L (0-34); B-Type Natriuretic Peptide 44 pg/mL (0-100); C-Reactive Protein 8.8 mg/dL (0.0-0.9); Calcium (Corrected) 9.1 mg/dL (8.5-10.1); Creatine Kinase 75 U/L (34-171); Free T4 (Free Thyroxine) 0.62 ng/dL (0.89-1.76); Globulin 2.9 gm/dL (2.3-3.5); Lipase 21 U/L (12-53); Procalcitonin 0.21 ng/ml (0.0-0.49); Thyroid Stimulating Hormone 1.71 uIU/mL (0.55-4.78); Total Protein 5.3 gm/dL (5.7-8.2); Troponin I 0.027 ng/mL (0.0-0.045)
--- NOTE | 2024-06-28 23:00 | PC.NURSE ---
PT BROUGHT INTO ER BY AMBULANCE FROM [facility] FOR ALTERED MENTAL STATUS. ON ARRIVAL PT UNRESPONSIVE, RESPONDS TO STERNAL RUB, PUPILS PINPOINT. DR. BAINS AT BEDSIDE. PER STAFF AT HALFWAY PT LKW WAS AROUND 1999. PT NORMALLY GCS 15. IN ROUTE PT PLACED ON OXYGEN, IV ESTABLISHED AND FLUIDS STARTED. PER HALFWAY STAFF PT TESTED POSITIVE FOR FLU TODAY. PT PLACED ON MONITOR.
[2024-06-28 23:12] LABS: Amphetamine/Methamp Scrn,U Negative (Negative); Barbiturate Screen,Urine Negative (Negative); Benzodiazepines Screen,Urine Positive (Negative); Benzoylecgonine Screen, Ur Negative (Negative); Fentanyl Screen,Urine Negative (Negative); Opiate Screen,Urine Positive (Negative); THC Screen,Urine Negative (Negative)
--- NOTE | 2024-06-28 23:25 | PC.NURSE ---
PER ONLY GIVE ONE LITER OF NORMAL SALINE, PT GOT ONE LITER ON LR FROM EMS.
[2024-06-29] VITALS (21 sets, daily range): BP systolic 70–107; BP diastolic 41–76; PULSE 52–74; RESP 13–19; TEMP 34.9–36.3; O2SAT 94–100; BMI 21.4
[2024-06-29] MEDS: Vancomycin Inj 1,000 MG in SODIUM CHLORIDE 0.9% 500 ML 500 ML 150 MG IV (00:38)
--- NOTE | 2024-06-29 00:58 | PD.RESHP ---
Documentation for date of: 06/29/24 [facility] History of Present Illness History of present illness: Yevgeniy Hudson is a 73-year-old male with a past medical history of recurrent UTI in setting of chronic catheter (Baker and condom), peripheral vascular disease s/p right AKA, spinal laminectomy in 2022, chronic pain (on baclofen and dilaudid), chronic wounds (sacrum, right stump), adult failure to thrive, BPH, history of Valley Fever, anxiety, and depression who presents from [facility] after being found unresponsive by nursing staff. Patient cannot provide history and obtained from chart review and other staff but apparently at baseline is GCS 15 and A&O x 3. Found to be influenza A positive at facility and was going to be given Tamiflu when he was found unresponsive, prompting call for EMS. Upon arrival to ED, patient was given one-time dose of Narcan and per nursing staff, respiratory rate improved and was slightly more responsive but still not communicating and was also given one-time dose of Flumazenil. Noted to be on dilaudid 4 mg q4h, baclofen, and Xanax 0.5 mg q4h at facility. Initial vitals showed BP 75/50 that improved to 98/67 after total of 2 L IVF (1 L in ED and 1 L by EMS), HR 106, RR 22, afebrile, saturating 100% on room air. CBC showed no leukocytosis and chronic anemia with hemoglobin 8.9. ABG showed pH 7.4, pCO2 35, PO2 82. CHEM panel showed CRP 8.8, ESR 19, BHB 2.0, normal CK, normal Pro-Kayden, normal lactate. UA: Turbid, 1+ protein, 2+ blood, 33 RBC, 3300 WBC, 1+ bacteria, LE positive. U tox positive for opiates and benzos. CXR showed left base pneumonia, mild vascular congestion. CT C/A/P: Pneumonia left base, numerous bilateral/nonobstructing renal calculi, significant amount of stool in colon, old ununited right subcapital hip fracture. CT head: Nondiagnostic study. Given 1 L NS bolus, naloxone x1, flumazenil x1, ceftriaxone and vancomycin x1. Admitted for management of acute encephalopathy, multifactorial in setting of polypharmacy, influenza A, and UTI. PMHx: recurrent UTI in setting of chronic catheter (Baker and condom), PVD s/p right AKA, spinal laminectomy in 2022, chronic pain, chronic wounds (sacrum, right stump), adult FTT, BPH, history of Valley Fever, anxiety, depression Medications: Baclofen, finasteride, fluoxetine, hydromorphone, tamsulosin, Xanax SHx: cocaine in early 20s, smoked 2-3 cigarettes, quit in 1989, comes from [facility] PSHx: right AKA, laminectomy 2022 Review of Systems Review of Systems ROS Unobtainable: unobtainable due to mental status Exam Vital Signs Temp Pulse Resp BP Pulse Ox O2 Del Method 97.5 F 80 20 98/69 97 Room Air 06/28/24 23:52 06/28/24 23:52 06/28/24 23:52 06/28/24 23:52 06/28/24 23:52 06/28/24 23:52 Narrative Exam General: not alert, does move to name/voice but does not wake up, responds to pain and says ouch HEENT: neck contracted, pupils not constricted, bilateral sclera anicteric Cardiovascular: regular rate and rhythm, S1/S2 present, no murmurs appreciated Pulmonary: clear to auscultation bilaterally, no rales/rhonchi/wheezes Abdominal: soft, non-tender, non-distended, no rebound/guarding, normal bowel sounds present Genitourinary: Baker placed, sediment in tubing Skin/MSK: - Right AKA with chronic wound noted at end of stump with no noted purulence, edematous - LLE bandaged, hairless and shiny skin - Sacrum with deep stage IV ulcer with no noted purulence Neuro: unable to assess Results: Labs 06/29/24 04:59 06/29/24 04:59 Labs: Short CBC 06/28/24 Range/Units 21:52 WBC 8.4 (3.8-10.6) Thou/mm3 Hgb 8.9 L (13.5-16.0) g/dL Hct 28.2 L (41.0-53.0) % Plt Count 357 (140-440) Thou/mm3 BMP 06/28/24 21:52 Sodium 137 Potassium 3.8 Chloride 103 Carbon Dioxide 25.8 BUN 18 Creatinine 0.8 Glucose 131 H Calcium 7.8 L Cardiac Enzymes 06/28/24 Range/Units 21:52 Total Creatine Kinase 75 (34-171) U/L Troponin I 0.027 (0.0-0.045) ng/mL Liver Function 06/28/24 Range/Units 21:52 Total Bilirubin 0.2 L (0.3-1.2) mg/dL Direct Bilirubin 0.1 (0.0-0.3) mg/dL AST 17 (0-34) U/L ALT < 7 L (10-49) U/L Alkaline Phosphatase 68 (46-116) U/L Albumin 2.4 L (3.4-4.8) gm/dL Urine 06/28/24 Range/Units 21:56 Urine Color Yellow (Lt Yel-Yel) Urine Clarity Turbid A (Clear/Hazy) Urine pH 6.5 (5.0-7.0) Ur Specific [place] 1.013 (1.001-1.035) Urine Protein 1+ A (Neg - Trace) Urine Glucose (UA) Negative (Negative) ABG Interpretation ABG results: 06/28/24 22:00 ABG pH 7.44 ABG pCO2 35 ABG pO2 82 L ABG HCO3 24 ABG O2 Saturation 99 H ABG Base Excess 0 Quality Measures Quality Measures VTE prophylaxis Advance care planning discussed with:: patient Medications Home Medications and Allergies Home Medications ?Medication ?Instructions ?Recorded ?Confirmed ?Type alprazolam 1 mg tablet (Xanax) 1 mg PO Q6H 06/27/23 03/19/24 History amino acids-protein hydrolysate 15 1 ea PO BID 06/27/23 03/19/24 History gram-100 kcal/30 mL oral liquid (Pro-Stat Sugar Free) ascorbic acid (vitamin C) 500 mg 500 mg PO BID 06/27/23 03/19/24 History tablet (Vitamin C) fluoxetine 10 mg tablet 10 mg PO QDAY 06/27/23 03/19/24 History folic acid 1 mg tablet 1 mg PO BID 06/27/23 03/19/24 History pantoprazole 40 mg tablet,delayed 40 mg PO BID 06/27/23 03/19/24 History release (Protonix) polyethylene glycol 3350 17 gram 17 g PO HS 06/27/23 03/19/24 History oral powder packet (Miralax) senna-docusate sodium capsule 1 cap PO BID PRN Constipation 06/27/23 03/19/24 History baclofen 10 mg tablet 10 mg PO Q6H PRN Muscle Spasm 09/21/23 03/19/24 History hydromorphone 4 mg tablet 8 mg PO Q4H PRN Pain, Severe 09/21/23 03/19/24 History ibuprofen 200 mg tablet 600 mg PO Q6H PRN Pain, Moderate 09/21/23 03/19/24 History ondansetron HCl 4 mg tablet 4 mg PO Q6H PRN nausea AND 09/21/23 03/19/24 History VOMITTING oxymetazoline 0.05 % nasal mist 2 spray intranasal Q12H PRN NASAL 09/21/23 03/19/24 History CONGESTION Allergies Allergy/AdvReac Type Severity Reaction Status Date / Time No Known Allergies Allergy Verified 06/26/23 16:49 Visit Medications Naloxone HCl 2 mg/ Dextrose 500 mls @ 10 mls/hr IV .Q24H NABIL Stop: 07/28/24 21:44 Last Admin: 06/28/24 21:46 Dose: Not Given Vancomycin HCl 1,000 mg/ (Sodium Chloride) 500 mls @ 150 mls/hr IV X1 ONE Stop: 06/29/24 02:26 Last Admin: 06/29/24 00:38 Dose: 150 mls/hr Discontinued Medications Flumazenil (Flumazenil Inj 0.1 Mg/Ml Vial 10 Ml) 0.2 mg IVP X1 ONE Stop: 06/28/24 21:13 Last Admin: 06/28/24 22:00 Dose: 0.2 mg Sodium Chloride (Ns) 1,000 mls @ 999 mls/hr IV .Q1H1M ONE Stop: 06/28/24 22:12 Last Infusion: 06/28/24 22:46 Dose: Infused Ceftriaxone Sodium 1,000 mg/ (Sodium Chloride) 50 mls @ 100 mls/hr IV X1 ONE Stop: 06/28/24 21:44 Last Infusion: 06/28/24 22:40 Dose: Infused Sodium Chloride (Ns) 1,000 mls @ 999 mls/hr IV .Q1H1M ONE Stop: 06/28/24 22:15 Last Admin: 06/28/24 23:25 Dose: Not Given Naloxone HCl (Naloxone Inj 0.4 Mg/Ml Vial) 2 mg IV X1 ONE Stop: 06/28/24 21:13 Last Admin: 06/28/24 21:45 Dose: 2 mg Oseltamivir Phosphate (Oseltamivir 75 Mg Capsule) 75 mg PO X1 ONE Stop: 06/28/24 23:22 Assessment & Plan Plan Yevgeniy Hudson is a 73-year-old male with a past medical history of recurrent UTI in setting of chronic catheter (Baker and condom), peripheral vascular disease s/p right AKA, spinal laminectomy in 2022, chronic pain (on baclofen and dilaudid), chronic wounds (sacrum, right stump), adult failure to thrive, BPH, history of Valley Fever, anxiety, and depression who presents from [facility] after being found unresponsive by nursing staff. Admitted for management of acute encephalopathy, multifactorial in setting of polypharmacy, influenza A, and UTI. #Acute encephalopathy #Polypharmacy At baseline GCS 15 and alert and oriented x 3. Noted to be unresponsive at facility and given Narcan in the ED with some response. Per nursing staff, had pinpoint pupils upon arrival. Suspect to be due to opioids and possibly benzos with component of toxic encephalopathy secondary to influenza A and complicated UTI. Will hold psychoactive medications for now and will restart as seen fit. ? Holding Dilaudid, baclofen, Xanax, fluoxetine ? Nurse swallow screen ? Swallow evaluation ? NPO ? Aspiration precautions #Recurrent UTI in setting of chronic catheters #Complicated UTI Unable to obtain history but patient has history of recurrent UTIs in setting of chronic catheters (Baker and condom), with most recent admission requiring ICU-level care. Previous urine cultures positive for Providencia rettgeri sensitive to ceftriaxone. On this admission, comes from [facility] with condom catheter that was exchanged in ED for Baker. UA turbid, 1+ protein, 2+ blood, 33 RBC, 2300 WBC, 1+ bacteria, LE positive. Lactate wnl, procal wnl, ESR wnl, CRP elevated at 8.8. Technically not septic as no organ dysfunction identified, but SIRS positive and qSOFA score of 3. Patient did come in with blood pressure of 75/50 that was fluid responsive (total 2 L IVF) as blood pressure improved to 98/69 (MAP 79) and HR imprved from 106 to 80 bpm. ? Ceftriaxone 1 g IV daily ? Follow-up urine cultures ? Follow-up blood cultures #Influenza A pneumonia Found to be flu A positive at facility but unable to obtain history. Currently breathing 97% on room air and pulmonary exam clear to auscultation but will begin oseltamivir. ABG showed pH 7.4, pCO2 35, PO282. CT C/A/P showed pneumonia left base. ? Oseltamavir 75 mg p.o. twice daily #Chronic wounds Noted to have chronic wounds on sacrum, right lower extremity stump, and left lower extremity above ankle. No purulent exudates noted.? ? Doxycycline 100 mg IV twice daily, de-escalate as necessary ? Follow-up wound culture ? Wound care ? Vitamin C 500 mg p.o. twice daily #Adult failure to thrive ? Folic acid 1 mg p.o. twice daily ? Multivitamins daily #Anxiety #Depression ? Holding fluoxetine as noted above #Chronic pain ? Holding Dilaudid and baclofen as noted above ? Restart as necessary #BPH ? Tamsulosin 0.4 mg p.o. daily ? Finasteride 5 mg p.o. daily Hospital management: Disposition: med tele; management of acute encephalopathy secondary to polypharmacy, UTI, influenza A Fluids: none Diet: NPO, pending evaluations (mechanical soft, thin consistency at SNF) Lines: PIV DVT prophylaxis: heparin SC BID GI prophylaxis: pantoprazole Baker: placed CODE STATUS: full code (per POLST form from facility) ----- Plan discussed with attending physician Dr. Ajay Aguilera MD PGY-1 Internal Medicine Attending Provider Attestation/Addendum I have examined the patient, reviewed labs and imaging findings, discussed the case with the resident(s), and reviewed entered orders. I agree with the plan of care as outlined in this note, with these additional summaries/recommendations: Patient is a 73-year-old male with a medical history of severe protein calorie malnutrition, paraplegia, right leg amputation, depression, anxiety disorder, stage III decubitus ulcer, neurogenic bladder with chronic indwelling Baker catheter, recurrent UTIs, peripheral vascular disease, coccidioidomycosis, and asthma who presents to [facility] emergency department with chief complaint of altered mental status. Per documentation patient was alert and talking at 8 PM but when nursing staff went to give patient his medication he was somnolent and not responding to questions. EMS was called and patient was also noted to be hypotensive with BP 75/50. In the emergency department patient was given naloxone and flumazenil with some improvement in mentation. At bedside in the emergency room patient is seen leaning on his elbow and protecting his airway. He is not following commands or responding to questions. Patient diagnosed with acute encephalopathy. Encephalopathy is likely multifactorial secondary to infectious etiology and polypharmacy. Patient takes hydromorphone 4 mg p.o. every 4 hours PRN and Xanax 0.5 mg p.o. every 4 hours as needed. We will currently hold these medications and monitor for improvement in mental status. If patient's condition worsens again then we will give additional Narcan. We will avoid flumazenil moving forward as patient chronically takes benzodiazepines. NPO. Swallow evaluation. Urinalysis indicative of urinary tract infection. Patient diagnosed with complicated urinary tract infection. Baker catheter exchanged in the ED. Blood and urine cultures taken, follow-up results when available. CT scan indicative of pneumonia in the left base. Patient will receive IV antibiotics and monitor for improvement. Patient was also diagnosed with influenza A today at custodial. Start Tamiflu although we will wait swallow evaluation before giving. Resume home fluconazole for history of coccidioidomycosis. Hypotension currently resolved with fluid bolus. Lactic acid within normal limits. ABG relatively within normal limits and patient's O2 saturation is appropriate on room air. Consult wound care for stage III decubitus ulcer. CT scan also showed very large amounts of stool in the rectum and throughout the colon. Start laxatives as able. Resume home medicines as tolerated. Consult dietary for protein caloric deficiency. Overall prognosis is guarded at this time. Please see residents note for additional details and recommendations. Dr. Ajay MD
--- NOTE | 2024-06-29 01:14 | PC.NURSE ---
PT AWAKE AND TALKING, DR. CROSS MADE AWARE.
--- NOTE | 2024-06-29 01:30 | PC.NURSE ---
PT BRIEF AND DRESSING TO BUTTOCKS CHANGED D/T FECES GETTING UNDER DRESSING AND INTO WOUNDS.
[2024-06-29] MEDS: SODIUM CHLORIDE 0.9% 500 ML 500 ML 999 ML IV ×3 (02:41→07:14)
[2024-06-29] MEDS: DOXYCYCLINE INJ 100 MG in SODIUM CHLORIDE 0.9% (POP) 100 ML IV (02:59)
[2024-06-29 05:16] LABS: Basophils % (Auto) 0 % (0-2.5); Eosinophils % (Auto) 0 % (0-10); Hematocrit 27.9 % (41.0-53.0); Hemoglobin 8.9 g/dL (13.5-16.0); Immature Granulocytes % (Auto) 0 % (0-0); Immature Granulocytes Auto 0.03 Thou/mm3 (0.00-0.00); Lymphocytes # (Auto) 0.8 Thou/mm3 (1.0-4.8); Lymphocytes % (Auto) 10 % (10-50); Mean Corpuscular HGB Conc 31.9 g/dl (31.0-37.0); Mean Corpuscular Hemoglobin 24.7 pg (25.0-35.0); Mean Corpuscular Volume 78 fL (80-100); Monocytes # (Auto) 0.4 Thou/mm3 (0.0-0.8); Monocytes % (Auto) 5 % (0-12); Neutrophils % (Auto) 85 % (37-80); Nucleated Red Blood Cell % 0 /100 WBC (0); Platelet Count 362 Thou/mm3 (140-440); White Blood Count 8.2 Thou/mm3 (3.8-10.6)
--- NOTE | 2024-06-29 05:30 | PC.NURSE ---
DR. CROSS MADE AWARE OF PT CURRENT TEMPERATURE OF 95.1. VERBAL ORDER FOR BEAR HUGGER RECEIVED. DR. CROSS ALSO MADE AWARE OF PT CONTINUING TO HAVE BOWEL MOVEMENTS WHICH ARE GOING INTO WOUNDS ON BUTTOCKS. VERBAL ORDER RECEIVED FOR RECTAL TUBE.
[2024-06-29 06:05] LABS: Alanine Aminotransferase < 7 U/L (10-49); Albumin, Serum 2.3 gm/dL (3.4-4.8); Albumin/Globulin Ratio 0.8 (1.2-2.2); Alkaline Phosphatase 67 U/L (46-116); Anion Gap 8 (7-16); Aspartate Amino Transferase 16 U/L (0-34); BUN/Creatinine Ratio 27 Ratio (12-20); Bilirubin,Total 0.2 mg/dL (0.3-1.2); Blood Urea Nitrogen 16 mg/dL (9-23); Calcium 7.7 mg/dL (8.3-10.6); Calcium (Corrected) 9.1 mg/dL (8.5-10.1); Carbon Dioxide 25.4 mMol/L (20.0-31.0); Chloride 108 mMol/L (98-107); Cholesterol 67 mg/dL (132-200); Creatinine (Component) 0.6 mg/dL (0.6-1.3); Estimated Creatinine Clearance 90.7 mL/min (>60); Globulin 2.8 gm/dL (2.3-3.5); Glucose 117 mg/dL (74-106); HDL Cholesterol 22 mg/dL (40-60); LDL Cholesterol,Calculated 33 mg/dL (0-130); Magnesium 1.6 mg/dL (1.6-2.6); Osmolality,Calculated 283 (275-295); Potassium 2.8 mMol/L (3.4-5.1); Sodium 141 mMol/L (136-145); Total Protein 5.1 gm/dL (5.7-8.2); Triglycerides 58 mg/dL (30-150); eGFR > 60 See Note
--- NOTE | 2024-06-29 06:05 | PC.NURSE ---
DR. CROSS MADE AWARE OF PT BP OF 84/56. PER DR. CROSS WILL PUT IN ORDER FOR ANOTHER 500ML BOLUS OF NS.
--- NOTE | 2024-06-29 06:59 | PC.NURSE ---
CALLED RESIDENTS, INFORMED DR. ROSENBAUM PT BP 71/50. STATES WILL HAVE ONCOMING RESIDENT COME PT.
[2024-06-29 07:04] LABS: Glucose Estimated Average 91 mg/dL (80-131); Hemoglobin A1C 4.8 % Hgb (4.8-6.0)
--- NOTE | 2024-06-29 07:52 | PD.RESEVENT ---
Documentation for date of: 06/29/24 Event Note Event Note: The goals of care discussion was initiated with the patient's Sister Karla over the phone regarding pt's code status and plan of care. We reviewed the patient's current hospital course, ongoing management and any aggressive treatments and or interventions, including potential need for central line to start pressor support and admission to ICU as Pt's MAP is below 50 despite received 3.5L of fluids, electrolytes including potassium and magnesium as well as albumin. All treatment options have been discussed at length and the sister expressed that her and her other sister have discussed Mr. Hudson's current state of health and quality of life and they have decided to not go through with any aggressive measures include changing code status from FULL CODE to DNR/DNI, no central line, no pressor support, and if the peripheral IV lines malfunctions they do not want additional IV lines to be placed. The sister have made decision to transition the patient to comfort care with direct focus on comfort care, symptom control and pain free. Pt's sister would like us to contact other sister Katlyn who is in town [facility]. Karla requested that if we are unable to get hold of Ms. Potts then we can go ahead start comfort care now. Contact is made with Ms. Potts, and she is agreeable with the plan that is discussed with Karla, and states she will be arriving to the hospital in an hour and then comfort care maybe started. Assessment and plan discussed with my attending physician Dr. Shirin Hall (PGY-1)- Internal medicine resident
--- NOTE | 2024-06-29 09:09 | PC.NURSE ---
Report given to MS GARVIN pt transfered to room 370 on comfort measures
[2024-06-29] MEDS: SCOPOLAMINE 1 MG TDSY TOP (10:16)
--- NOTE | 2024-06-29 10:46 | PC.SS ---
Code status updated to DNR effective 06/29/24. Patient's sibling Katlyn requesting to be added to patient's demographic page as point of contact.
--- NOTE | 2024-06-29 13:51 | ESPR_ITS ---
<Statement entered by Aung Valdez MD - 06/29/24 14:48> Patient admitted overnight, but this morning patient's blood pressure was very low. Team discussed with family regarding poor prognosis and family chose to proceed with comfort care. Patient is now on comfort care with as needed benzos and morphine for breakthrough pain and discomfort. Family at bedside to comfort patient as well. Case discussed with team. Aung Valdez MD PGY3 Documentation for date of: 06/29/24 Subjective Subjective Interval history: Pt is seen and examined at bedside. Pt sister Katlyn is at bedside along with a close family friend. Pt is agreeable to proceed with plan of comfort measure. Earlier this morning: Patient's Sister Karla is contacted over the phone regarding pt's code status and plan of care. We reviewed the patient's current hospital course, ongoing management and any aggressive treatments and or interventions, including potential need for central line to start pressor support and admission to ICU as Pt's MAP is below 50 despite received 3.5L of fluids, electrolytes including potassium and magnesium as well as albumin. All treatment options have been discussed at length and the sister expressed that her and her other sister have discussed Mr. Hudson's current state of health and quality of life and they have decided to not go through with any aggressive measures include changing code status from FULL CODE to DNR/DNI, no central line, no pressor support, and if the peripheral IV lines malfunctions they do not want additional IV lines to be placed. The sister have made decision to transition the patient to comfort care with direct focus on comfort care, symptom control and pain free. Pt's sister would like us to contact other sister Katlyn who is in town if she is available to be at bed side as Mr. Hudson passes. Karla requested that if we are unable to get hold of Ms. Potts then we can go ahead start comfort care now. Contact is made with Ms. Potts, and she is agreeable with the plan that is discussed with Karla, and states she will be arriving to the hospital in an hour and then comfort care maybe started. Exam Vital Signs Temp Pulse Resp BP Pulse Ox O2 Del Method O2 Flow Rate 94.8 F L 59 L 17 74/59 L 98 Room Air 2 06/29/24 07:50 06/29/24 12:37 06/29/24 12:37 06/29/24 07:50 06/29/24 12:37 06/29/24 07:50 06/29/24 12:37 Narrative Exam GENERAL: thin, elderly frail and ill appearing male, opens eyes to verbal stimuli NEURO: unable to asses HEENT: Atraumatic, Normocephalic. mucous membranes dry. Eyes open, symmetrical, & clear HEART: Normal Heart Sounds LUNGS: Clear to auscultation with no wheezing or crackles. ABDOMEN: soft, non-distended, non-tender, bowel sounds heard, no guarding or rebound tenderness SKIN: large decubitus ulcer EXTREMITIES: right BKA Objective Labs 06/29/24 04:59 06/29/24 04:59 Labs: Laboratory Results - last 24 hr 06/28/24 06/28/24 06/28/24 21:52 21:56 22:00 WBC 8.4 RBC 3.55 L Hgb 8.9 L Hct 28.2 L MCV 79 L MCH 25.1 MCHC 31.6 RDW Std Deviation 55.8 H Plt Count 357 Neut % (Auto) 90 H Lymph % (Auto) 4 L [place] % (Auto) 5 Eos % (Auto) 0 Baso % (Auto) 0 Neut # (Auto) 7.6 Lymph # (Auto) 0.4 L [place] # (Auto) 0.5 Eos # (Auto) 0.0 Baso # (Auto) 0.0 Immature Gran # (Auto) 0.04 H Absolute Nucleated RBC 0.00 Immature Gran % 1 H Nucleated RBC % 0 ESR 19 PT 14.4 H INR 1.3 APTT 34.6 D-Dimer 594 Puncture Site Left Brachial ABG pH 7.44 ABG pCO2 35 ABG pO2 82 L ABG HCO3 24 ABG O2 Saturation 99 H ABG Base Excess 0 FiO2 21 Sodium 137 Potassium 3.8 Chloride 103 Carbon Dioxide 25.8 Anion Gap 8 BUN 18 Creatinine 0.8 Estim Creat Clear Calc Not Performed. eGFR > 60 BUN/Creatinine Ratio 23 H Glucose [address] Glu mg/dL Hemoglobin A1c Calculated Osmolality 277 Lactic Acid 1.8 Calcium 7.8 L Corrected Calcium 9.1 Magnesium 1.7 Total Bilirubin 0.2 L Direct Bilirubin 0.1 AST 17 ALT < 7 L Alkaline Phosphatase 68 Ammonia < 10 L Total Creatine Kinase 75 Troponin I 0.027 C-Reactive Prot, Quant 8.8 H B-Natriuretic Peptide 44 Total Protein 5.3 L Albumin 2.4 L Globulin 2.9 Albumin/Globulin Ratio 0.8 L Triglycerides Cholesterol LDL Cholesterol, Calc HDL Cholesterol Cholesterol/HDL Ratio Lipase 21 Beta-Hydroxybutyrate/Acetoacetate 2.0 H Procalcitonin 0.21 TSH 1.71 Free T4 0.62 L Ur Collection Type Clean Catch Urine Color Yellow Urine Clarity Turbid A Urine pH 6.5 Ur Specific [place] 1.013 Urine Protein 1+ A Urine Glucose (UA) Negative Urine Ketones Negative Urine Blood 2+ A Urine Nitrite Negative Urine Bilirubin Negative Urine Urobilinogen (Auto) 2.0 Ur Leukocyte Esterase Positive Urine RBC 33 H Urine WBC 3308 H Ur Squamous Epith Cells 0 Urine Bacteria 1+ A Ur Culture Indicated? Yes Urine Opiates Screen Urine Fentanyl Screen Ur Barbiturates Screen U Amphetamin/Meth Scrn U Benzodiazepines Scrn U Cocaine Metab Screen U Marijuana (THC) Screen 06/28/24 06/29/24 22:23 04:59 WBC 8.2 RBC 3.60 L Hgb 8.9 L Hct 27.9 L MCV 78 L MCH 24.7 L MCHC 31.9 RDW Std Deviation 53.0 H Plt Count 362 Neut % (Auto) 85 H Lymph % (Auto) 10 [place] % (Auto) 5 Eos % (Auto) 0 Baso % (Auto) 0 Neut # (Auto) 7.0 Lymph # (Auto) 0.8 L [place] # (Auto) 0.4 Eos # (Auto) 0.0 Baso # (Auto) 0.0 Immature Gran # (Auto) 0.03 H Absolute Nucleated RBC 0.00 Immature Gran % 0 Nucleated RBC % 0 ESR PT INR APTT D-Dimer Puncture Site ABG pH ABG pCO2 ABG pO2 ABG HCO3 ABG O2 Saturation ABG Base Excess FiO2 Sodium 141 Potassium 2.8 L D Chloride 108 H Carbon Dioxide 25.4 Anion Gap 8 BUN 16 Creatinine 0.6 Estim Creat Clear Calc 90.7 eGFR > 60 BUN/Creatinine Ratio 27 H Glucose [address] Glu mg/dL 91 Hemoglobin A1c 4.8 Calculated Osmolality 283 Lactic Acid Calcium 7.7 L Corrected Calcium 9.1 Magnesium 1.6 Total Bilirubin 0.2 L Direct Bilirubin AST 16 ALT < 7 L Alkaline Phosphatase 67 Ammonia Total Creatine Kinase Troponin I C-Reactive Prot, Quant B-Natriuretic Peptide Total Protein 5.1 L Albumin 2.3 L Globulin 2.8 Albumin/Globulin Ratio 0.8 L Triglycerides 58 Cholesterol 67 L LDL Cholesterol, Calc 33 HDL Cholesterol 22 L Cholesterol/HDL Ratio 3.0 L Lipase Beta-Hydroxybutyrate/Acetoacetate Procalcitonin TSH Free T4 Ur Collection Type Urine Color Urine Clarity Urine pH Ur Specific [place] Urine Protein Urine Glucose (UA) Urine Ketones Urine Blood Urine Nitrite Urine Bilirubin Urine Urobilinogen (Auto) Ur Leukocyte Esterase Urine RBC Urine WBC Ur Squamous Epith Cells Urine Bacteria Ur Culture Indicated? Urine Opiates Screen Positive A Urine Fentanyl Screen Negative Ur Barbiturates Screen Negative U Amphetamin/Meth Scrn Negative U Benzodiazepines Scrn Positive A U Cocaine Metab Screen Negative U Marijuana (THC) Screen Negative ABG Interpretation ABG results: 06/28/24 22:00 ABG pH 7.44 ABG pCO2 35 ABG pO2 82 L ABG HCO3 24 ABG O2 Saturation 99 H ABG Base Excess 0 Quality Measures Quality Measures VTE prophylaxis Advance care planning discussed with:: sibling Assessment & Plan Assessment Current Active Medications: Generic Name Dose Route Start Last Admin Trade Name Freq PRN Reason Stop Dose Admin Artificial Tears 1 drop 06/29/24 07:42 Artificial Tears 225 Drop/15 Ml Btl BOTH EYES 07/29/24 07:41 Q4HR PRN Dry eyes Glycerin 1 each 06/29/24 07:42 Glycerin, Adult 1 Ea Supp DE 07/29/24 07:41 QDAY PRN As needed for constipation Protocol Glycopyrrolate 0.2 mg 06/29/24 07:42 Glycopyrrolate Inj 0.2 Mg/Ml Vial IV 07/29/24 07:41 QID PRN As needed for secretions Lorazepam 1 mg 06/29/24 07:42 Lorazepam 2 Mg/Ml Vial IVP 07/04/24 07:41 Q6HR PRN ANXIETY Morphine Sulfate 2 mg 06/29/24 07:41 Morphine Sulf Inj 10 Mg/Ml Vial IVP Q30M PRN PAIN Ondansetron HCl 4 mg 06/29/24 01:16 Ondansetron Inj 2 Mg/Ml Inj 2 Ml IV 07/29/24 01:15 Q6H PRN NAUSEA OR VOMITING Protocol Scopolamine 1 mg 06/29/24 07:45 06/29/24 10:16 Scopolamine 1 Mg Tdsy TOP 07/29/24 07:44 1 mg Q3D NABIL Administration Plan Yevgeniy Hudson is a 73-year-old male with a past medical history of recurrent UTI in setting of chronic catheter (Baker and condom), peripheral vascular disease s/p right AKA, spinal laminectomy in 2022, chronic pain (on baclofen and dilaudid), chronic wounds (sacrum, right stump), adult failure to thrive, BPH, history of Valley Fever, anxiety, and depression who presents from [facility] after being found unresponsive by nursing staff. Admitted for management of acute encephalopathy, multifactorial in setting of polypharmacy, influenza A, and UTI. #Comfort care Pt's sister Katlyn and close family friend is at bedside and would like to continue with discussed plan of comfort care. Plan: -Comfort measures ordered -ordered artificial tears, scopolamine patch, lorazepam and morphine #Acute encephalopathy 2/ #Polypharmacy #Recurrent UTI in setting of chronic catheters #Complicated UTI #Influenza A pneumonia #Chronic wounds #Adult failure to thrive #Anxiety #Depression #Chronic pain #BPH Assessment and plan discussed with my senior resident Dr. Valdez & attending physician Dr. Shirin Hall (PGY-1)- Internal medicine resident Attending Provider Attestation/Addendum I, Aisha Carpio DO, attest that I was physically present for the post portions of the service and evaluated the patient with the resident and I reviewed and discussed the case with the resident and agree with the resident's findings and plans of care as documented above Patient seen and evaluated in the ED. Patient's pupils are pinpoint and reactive to light. GCS of 6 as patient only withdraws to pain/ noxious stimuli. BP 70/45. Per night team, patient has a history of chronic pain and opioid dependent. He received narcan and flumazenil in the ED. Patient had been hypotensive on initial evaluation, but was fluid responsive. Patient again is hypotensive at 7am. 1L of fluids given. Rectal tube had been placed as patient had several bowel movements that were contaminating patient's pressures wounds and ulcers. Patient had previously been on hospice. Sisters were contacted regarding patient condition and have opted to place patient on comfort care. Comfort care measures were initiated as per family's wishes.
--- NOTE | 2024-06-29 14:29 | PCS.ST ---
[employer] completed swallow eval. [employer] recommends D1/thin liquids, no dairy
[2024-06-29] MEDS: HYDROmorphone INJ 2 MG/ML VIAL 0.5 MG IVP (20:18)
[2024-06-30] VITALS: BP 93/59; PULSE 89; RESP 15; TEMP 36.3; O2SAT 94
[2024-06-30] MEDS: HYDROmorphone INJ 2 MG/ML VIAL 0.5 MG IVP ×4 (01:18→10:58)
[2024-06-30 04:00] VITALS: BP 82/56; PULSE 60; RESP 15; TEMP 36.2; O2SAT 93
[2024-06-30] MEDS: LORazepam 2 MG/ML VIAL 1 MG IVP ×2 (06:03→12:58)
[2024-06-30 07:53] VITALS: PULSE 52; RESP 18; O2SAT 100
[2024-06-30 08:00] VITALS: BP 85/47; PULSE 55; RESP 14; TEMP 36.4; O2SAT 100
[2024-06-30 12:00] VITALS: BP 98/57; PULSE 78; RESP 16; TEMP 36.6; O2SAT 100
--- NOTE | 2024-06-30 13:12 | PC.SS ---
Addendum entered by Valentina Corbett 06/30/24 17:02: SS faxed updated demographic page to registration fax to request updated person to notify to reflect patient's sister. Katlyn Swensno [address] [facility] [address] PHONE# [phone]. Addendum entered by Valentina Corbett 06/30/24 15:02: [facility] informed SS transportation is scheduled for 1600. VIRGIE Galindo and patient's sibling Katlyn Swenson [phone] informed of discharge, [facility] also informed of 1600 ETA. Original Note: SS contacted [employer] to request transportation, reservation #[phone]. PCS form submitted via [employer] to [facility], transportation time pending authorization. SS informed patient will discharge on comfort care to [facility]. SS contaced [facility], she can accept patient today and will return as hospice. Patient is already connected with [facility]. SS confirmed with Dr. Hall. Dr Hall stated to discharge with IV pain meds dilaudid. [facility] stated patient will be given pain medication by [facility]. [facility] requesting discharge summary and hospice orders.
--- NOTE | 2024-06-30 14:25 | ESDS_ITS ---
<Statement entered by Aisha Carpio DO - 07/06/24 07:21> I, Aisha Carpio DO, attest that I was physically present for the post portions of the service and evaluated the patient with the resident and I reviewed and discussed the case with the resident and agree with the resident's findings and plans of care as documented above Planned Discharge Date 06/30/24 DS: Providers Provider Date of admission: 06/29/24 01:11 Primary care physician: Geeta Boston MD ([facility]) Admitting Provider: Girma Moss MD Attending Provider on Admission: Girma Moss MD Consults: 06/29/24 01:20 Referral Wound Care Routine Comment: 06/29/24 15:48 Referral Nutritional Services Routine Comment: Attending Provider on DC: Girma Moss MD Discharging Provider: Girma Moss MD DS: Diagnosis Problem List Completed Was Problem List Reviewed/Reconciled?: Yes Hospital Course Hospital Course Hospital course: Mr. Mcfarlane is a 73-year-old male with past medical history of recurrent UTI in setting of chronic catheter (Baker and condom), peripheral vascular disease s/p right AKA, spinal laminectomy in 2022, chronic pain (on baclofen and dilaudid), chronic wounds (sacrum, right stump), adult failure to thrive, BPH, history of Valley Fever, anxiety, and depression who presents from [facility] after being found unresponsive by nursing staff. Patient was admitted to the hospital for management of acute encephalopathy. Patient's encephalopathy was thought to be multifactorial secondary to infectious etiology and polypharmacy. Patient was on multiple medications hydromorphone 4 mg p.o. every 4 hours PRN and Xanax 0.5 mg p.o. every 4 hours as needed. Patient's medications were held, urinalysis indicative of UTI, patient was started on IV antibiotics for complicated UTI. Patient was started on Tamiflu for positive influenza and wound care was consulted for chronic wounds. Postadmission in the morning patient's mean arterial pressure continued to decline despite receiving 4.5 IV fluid resuscitation, case was discussed with patient's Sisters Karla and Katlyn regarding CODE STATUS and plan of care. Patient's sister mentioned that she and patient's other sister discussed Mr. Hudson's state of health and quality of life in detail and decided to change patient's CODE STATUS to DNR/DNI, patient was transition to comfort care per family's wishes. The family did not want any invasive treatments requiring lines, or ICU admission. As patient was started on comfort care, patient became more alert and oriented with the progression of hospital course, goals of care discussion was held again with patient and family at bedside. Patient requested no heroic measures, requested CODE STATUS to be transition to DNR/DNI, and updated POLST form was signed. Patient agreed to no invasive measures, hence decision was made to discharge patient back to facility on hospice with comfort care. Patient stable for discharge. Hospitalization Diagnosis #Comfort care #Acute encephalopathy 2/2 #Polypharmacy #Recurrent UTI in setting of chronic catheters #Complicated UTI #Influenza A pneumonia #Chronic wounds #Adult failure to thrive #Anxiety #Depression #Chronic pain #BPH Assessment and plan discussed with my attending physician Dr. Shirin Hall (PGY-1)- Internal medicine resident Time Spent with Patient Time attestation: Total time spent providing and/or coordinating discharge services: Time spent: Greater than 30 minutes Exam Vital Signs Temp Pulse Resp BP Pulse Ox O2 Del Method O2 Flow Rate 97.8 F 78 16 98/57 L 100 Nasal Cannula 1 06/30/24 12:00 06/30/24 12:00 06/30/24 12:00 06/30/24 12:00 06/30/24 12:00 06/30/24 12:00 06/30/24 12:00 Narrative Exam Not performed. Discharge Plan Plan Patient Disposition: Home w/HOSPICE Disposition Comment: on COMFORT CARE Patient condition on transfer: Benefits outweigh risks Care Plan Goals: -Patient is discharged on comfort care Prescriptions/Referrals Prescriptions/Med Rec: No Action alprazolam [Xanax] 1 mg Tablet 1 mg PO Q6H ascorbic acid (vitamin C) [Vitamin C] 500 mg Tablet 500 mg PO BID pantoprazole [Protonix] 40 mg Tablet,Delayed Release (Dr/Ec) 40 mg PO BID senna-docusate sodium Capsule 1 cap PO BID PRN (Reason: Constipation) polyethylene glycol 3350 [Miralax] 17 gram Powder In Packet 17 g PO HS fluoxetine 10 mg Tablet 10 mg PO QDAY folic acid 1 mg Tablet 1 mg PO BID Pro-Stat Sugar Free 15-100 gram-kcal/30 mL Liquid 1 ea PO BID baclofen 10 mg Tablet 10 mg PO Q6H PRN (Reason: Muscle Spasm) ibuprofen 200 mg Tablet 600 mg PO Q6H PRN (Reason: Pain, Moderate) hydromorphone 4 mg Tablet 8 mg PO Q4H PRN (Reason: Pain, Severe) ondansetron HCl 4 mg Tablet 4 mg PO Q6H PRN (Reason: nausea AND VOMITTING) oxymetazoline 0.05 % Mist 2 spray INTRANASAL Q12H PRN (Reason: NASAL CONGESTION) fluconazole 200 mg tablet 400 mg PO QDAY 30 Days Qty: 60 6RF cefpodoxime 200 mg tablet 200 mg PO BID Qty: 20 0RF Rx Instructions: must administer with a meal/food Referrals: Darvin([facility])Geeta MD [Primary Care Provider] - Patient/Caregiver Discharge Instructions Education Materials: Understanding DNR Orders Print Language: Maori Stand Alone Forms: Katiana Award Info., Patient Portal Info Letter Discharge Order Discharge Orders: Discharge (Routine); Ordered 06/30/24 Ordered By: Dylan Hall Quality Discharge Quality Measures comfort care/end of life
[2024-06-30 16:00] VITALS: BP 108/43; PULSE 64; RESP 19; TEMP 36.3; O2SAT 98
== END 2024-06-30 16:13 | disposition hospice, home (50) | DRG 91 ==
LOC: SERX 06-29 00:12 → SERHOLD 06-29 02:10 → S3SX 06-29 08:56
PROVIDERS: Admitting Provider Student in an Organized Health Care Education/Training Program; Emergency Provider Emergency Medicine; PCP Hospitalist; Visit Provider Student in an Organized Health Care Education/Training Program
DX: G92.8 Other toxic encephalopathy (principal); J10.01 Influenza due to other identified influenza virus with the same other identified influenza virus pneumonia; L89.153 Pressure ulcer of sacral region, stage 3; N39.0 Urinary tract infection, site not specified; G82.20 Paraplegia, unspecified; F41.9 Anxiety disorder, unspecified; F32.A Depression, unspecified; N20.0 Calculus of kidney; T50.915A Adverse effect of multiple unspecified drugs, medicaments and biological substances, initial encounter; N31.9 Neuromuscular dysfunction of bladder, unspecified; R62.7 Adult failure to thrive; Z89.611 Acquired absence of right leg above knee; I73.9 Peripheral vascular disease, unspecified; N40.0 Benign prostatic hyperplasia without lower urinary tract symptoms; G89.29 Other chronic pain; Z87.440 Personal history of urinary (tract) infections; Z87.891 Personal history of nicotine dependence; Z51.5 Encounter for palliative care; Z66 Do not resuscitate
CPT/HCPCS: 36415; 36600; 70450; 71045; 71250; 74176; 80053; 80061; 80307; 81001; 82010; 82140; 82248; 82550; 82803; 83036; 83605; 83690; 83735; 83880; 84145; 84439; 84443; 84484; 85025; 85379; 85610; 85652; 85730; 86140; 87040; 87070; 87077; 87081; 87086; 87186; 87205; 87400; 87634; 87651; 87811; 92610; 93005; 93225; 96361; 96365; 96366; 99291; J0696; J1171; J2060; J2270; J2310; J3370; J3490; J7030; J7040; J7050; A9270